=== PATIENT | female | born 1975 | race Caucasian/White ===

== ENCOUNTER 2023-02-09 19:02 | Emergency (ER) | payer OTHER, SELFPAY ==
--- OUTSIDE RECORDS SUMMARY | 2023-02-09 19:07 | XMS REPORT | Continuity of Care Document ---
:1975 Author Organization [facility] t Address [address] [place] [address] Care Team Providers Name Role Phone Gelacio HERNÁNDEZ MD, Desirae Gibson Primary Care Physician [phone] Juan M Hayward MD Attending Clinician Yolanda Sheridan NP Attending Clinician Surv, [facility] Covid Attending Clinician Unavailable Yesy MOULTON, Aniyah Castillo Attending Clinician [phone] Gino De La Vega MD Attending Clinician BritanyRia Sena Attending Clinician Grace TORRES, Bonnie Martínez Attending Clinician Unavailab Jaye Austin MA Attending Clinician Unavailable Coretta Minor MA Attending Clinician Unavailable Desirae Minor MD Attending Clinician Wade SALON ASSISTANT-CZeina Attending Clinician [phone] Soraida SALON ASSISTANT, Charbel Hager Attending Clinician Дмитрий SALON ASSISTANTRadah Attending Clinician Lab, Ad[facility] Fam Pob I Attending Clinician Unavailable Mart Odell Attending Clinician MART SONG Attending Clinician Unavailable Doctor Unassigned, [place] Attending Clinician Unavailable Pob, [facility] Lab Main Attending Clinician Unavailable Nathaly Causey MD Attending Clinician NATHALY CAUSEY Attending Clinician Unavailable JAMI TAVERAS Attending Clinician Unavailable Only, [facility] Test Attending Clinician Unavailable Maurizio Jacques MD Attending Clinician MAURIZIO JACQUES Attending Clinician Unavailable VEDA VALLADARES Attending Clinician Unavailable Veda Scanlon Attending Clinician Pob[facility], [facility] Attending Clinician Unavailable CHERRY SHERIDAN Admitting Clinician Unavailable ANIYAH HAYWARD Admitting Clinician Unavailable Payers Payer Name Policy Type Policy Number Effective Date Expiration Date S ource Problems Condition Condition Condition Status Onset Resolution Last Treating Co mments Source Name Details Category Date Date Treatment Clinician Date Cystocele, Cystocele, Disease Active 2021-11 Overview : Methodi midline midline 12-[address] 00:00: [facility] this [facility] 00 note l might be different from the original. Added automatic ally from request for surgery [id number] JENNIFER JENNIFER Disease Active 2021-11 Overview: Method i (stress (stress 12-[address] urinary urinary 00:00: g of this Hospi ta incontinen incontinen 00 note l ce, ce, might be female) female) different from the original. Added automatic ally from request for surgery [id number] Pharyngiti Pharyngiti Disease Active U nivers s, s, 04-20 ity of unspecif[place] 00 [place] Branch Cough Cough Disease Active Univers 04-20 ity of 00:00: [place] [address] Medical Branch Diarrhea, Diarrhea, Disease Active Uni vers unspecifie unspecifie 04-20 it y of d type d type 00:00: [place] [address] Medical Branch Close Close Disease Active Univers exposure exposure 04-20 ity of to to 00:00: [place] COVID-19 COVID-19 00 Medica l virus virus Branch Elevated Elevated Disease Active Unive rs BP without BP without - it y of diagnosis diagnosis 00:00[place] of 00 Medical hypertensi hypertensi Br anch on on Chest pain Chest pain Disease Active U nivers -27 ity of 00:00: [place] [address] Medical Branch Obesity Obesity Disease Active Univers (BMI (BMI 2-27 ity of 30-39.9) 30-39.9) 00:00: [place] 00 [facility] Gallstone Gallstone Disease Active Uni vers pancreatit pancreatit 3-10 it y of is is 00:00: [facility] Posture Posture Disease Active Univers abnormalit abnormalit 3-23 it y of y y 00:00: Medical Branch Decreased Decreased Disease Active Uni vers strength strength 3-23 ity of 00:00: Medical [place] Cervical Cervical Disease Active Unive rs radiculopa radiculopa 3- it y of thy thy 00:00: [place] [facility] Neck pain Neck pain Disease Active Uni vers on left on left 3-23 ity of side side 00:00: [place] [facility] Cervical Cervical Disease Active Unive rs strain, strain, 3- ity of acute, acute, 00:00: [place] initial initial 00 Medical encounter encounter Bran ch Allergies, Adverse Reactions, Alerts Allergy Allergy Status Severity Reaction(s) Onset Inactive Treating Comm ents Source Name Type Date Date Clinician NO KNOWN Drug Active Univers ALLERGIE Class ity of S [facility] Family History Family Member Diagnosis Comments Start Date Stop Date Source Natural father Hyperthyroidism [facility] Natural mother Breast cancer [facility] Natural mother Diabetes [facility] Natural mother Hypertension [facility] Social History Social Habit Start Date Stop Date Quantity Comments Source Exposure to Yes University SARS-CoV-2 [facility] (event) [place] Alcohol intake 2023-02-05 2023-02-05 Ex-drinker [facility] 00:00:00 00:00:00 (finding) Alcohol Comment 2022-10-30 2022-10-30 3-4 times a year Met [facility] 00:00:00 00:00:00 Tobacco use and 2022-06-27 2022-06-27 Smokeless tobacco [facility] exposure 00:00:00 00:00:00 non-user Sex Assigned At [address] [facility] 00:00:00 00:00:00 Smoking Status Start Date Stop Date Source Never smoked tobacco [facility] ospital Medications Ordered Filled Start Stop Current Ordering Indication Dosage Frequency Signature Comments Components Source Medication Medication Date Date Medication? Clinician (SIG) Name Name levothyroxi 2021-11 Yes 175ug QD Take 1 Met edwin gardiner 2-[address] (SYNTHROID) 10:11: (175 mcg Ho spita 175 mcg 47 total) by l tablet mouth daily. fluticasone 2021-11 Yes 100ug QD 2 sprays M ethodi propionate 2-21 ([address] (FLONASE) 10:11: total) by Hos kartik 50 47 Each Nare l mcg/actuati route on nasal daily. spray acetaminoph 2021-11 Yes 12084 1{tbl} Q6H Take 1 M ethodi en-codeine 2-[address] (TYLENOL 00:00: mouth Hospita WITH 00 every 6 l CODEINE #3) (six) 300-30 mg hours as per tablet needed for moderate pain .acute pain. cephalexin 2021-11- No 500mg Q.5D Take 1 Met hodi (KEFLEX) 01-[address] 500 MG 00:00: 05:59 (500 mg Hospita capsule 00 :00 total) by l mouth 2 (two) times a day for 5 days. metFORMIN 2021-11 Yes 500mg Take 1 Metho di XR 0-[address] (GLUCOPHAGE 00:00: (500 mg Hos kartik -XR) 500 mg 00 total) by l 24 hr mouth. tablet cyanocobala 2021-11 Yes INJECT 1ML Methodi min 1,000 0-[address] mcg/mL 00:00: 4 WEEKS Hospita injection 00 THEN l MONTHLY FOR MAINTENANC E. hydroCHLORO 2021-11- No 25mg Q24H Take 1 Met hodi thiazide 0-24 10-25 tablet (25 st (HYDRODIURI 00:00: 04:59 mg total) Hospita L) 25 MG 00 :00 by mouth l tablet daily as needed. buPROPion No Methodi XL 08-[address] (WELLBUTRIN 00:00: 00:00 Hospi ta XL) 150 MG 00 :00 l 24 hr tablet nitrofurant 2021- No [id number] 100mg Q.5D Take 1 Methodi oin, 08-[address] macrocrysta 00:00: 04:59 (100 mg Ho spita l-monohydra 00 :00 total) by l te, mouth 2 (Macrobid) (two) 100 MG times a capsule day for 5 days. cyclobenzap 2021- No [id number] 5mg Q.[id number] Take 1 Methodi rine 9-17 09-23 [id number] tablet (5 st (FLEXERIL) 00:00: 04:59 3D mg total) H ospita 5 mg tablet 00 :00 by mouth 3 l (three) times a day as needed for muscle spasms for up to 5 days. levothyroxi Yes TAKE 1 Meth myra ne 8-[address] (SYNTHROID) 00:00: MOUTH ON Ho spita 150 mcg 00 EVERY l tablet SATURDAY, SATURDAY & SATURDAY benzonatate 2021- No [id number] 200mg Q.[id number] Take 2 Methodi (Tessalon 8-03 09-[id number] Perl) 100 00:00: 04:59 3D (200 mg Ho spita MG capsule 00 :00 total) by l mouth 3 (three) times a day as needed for cough for up to 30 days. sertraline Yes 100mg QD Take 1 Meth myra (ZOLOFT) 5-[address] 100 MG 00:00: (100 mg Hospita tablet 00 total) by l mouth nightly. buPROPion 2022- No 150mg Take 1 Meth myra XL 5-17 05-[address] (WELLBUTRIN 00:00: 04:59 (150 mg Ho spita XL) 150 MG 00 :00 total) by l 24 hr mouth. tablet clarithromy 2019-0 Yes [id number] 500mg Take 1 Univers scotty 5-27 tablet by ity of (BIAXIN) 00:00: mouth [place] 500 mg 00 every 12 Medical tablet (twelve) Branch hours. nystatin/ma 2020-0 Yes [id number] 5mL Take 5 mL Univers alox/diphen 5-27 by mouth 4 it y of hydrAMINE/l 00:00: (four[place] idocaine 2 00 times Medical % viscous daily as Branch 1:1:1:1 needed Susp (Sore suspension throat). Gargle and spit, do not swallow acetaminoph 2020-0 Yes [id number] 650mg Take 1 Univers en 650 mg 5-27 tablet by ity o f CR tablet 00:00: mouth [place] 00 every 8 Medical (eight) Branch hours as needed for Pain or Fever. Bismuth 2020-0 Yes [id number] 262mg Take 1 Uni vers Subsalicyla 5-27 tablet by ity of te 00:00: mouth 4 [place] (PEPTO-BISM 00 (four) Medica l OL) 262 mg times Branch tablet daily as needed (diarrhea) . bromphenira 2020-0 Yes [id number] 10mL Take 10 mL Univers mine-pseudo 5-27 by mouth 4 it y of ephedrine-D 00:00: (four[place] M (BROMFED 00 times Medical DM) 2-30-10 daily as Bran ch mg/5 mL needed for syrup Cough. clarithromy 2020-0 Yes [id number] 500mg Take 1 Univers scotty 5-27 tablet by ity of (BIAXIN) 00:00: mouth [place] 500 mg 00 every 12 Medical tablet (twelve) Branch hours. nystatin/ma 2020-0 Yes [id number] 5mL Take 5 mL Univers alox/diphen 5-27 by mouth 4 it y of hydrAMINE/l 00:00: (four[place] idocaine 2 00 times Medical % viscous daily as Branch 1:1:1:1 needed Susp (Sore suspension throat). Gargle and spit, do not swallow acetaminoph 2020-0 Yes [id number] 650mg Take 1 Univers en 650 mg 5-27 tablet by ity o f CR tablet 00:00: mouth [place] 00 every 8 Medical (eight) Branch hours as needed for Pain or Fever. Bismuth 2020-0 Yes [id number] 262mg Take 1 Uni vers Subsalicyla 5-27 tablet by ity of te 00:00: mouth 4 [place] (PEPTO-BISM 00 (four) Medica l OL) 262 mg times Branch tablet daily as needed (diarrhea) . bromphenira 2020-0 Yes [id number] 10mL Take 10 mL Univers mine-pseudo 5-27 by mouth 4 it y of ephedrine-D 00:00: (four[place] M (BROMFED 00 times Medical DM) 2-30-10 daily as Bran ch mg/5 mL needed for syrup Cough. clarithromy 2020-0 Yes [id number] 500mg Take 1 Univers scotty 5-27 tablet by ity of (BIAXIN) 00:00: mouth [place] 500 mg 00 every 12 Medical tablet (twelve) Branch hours. nystatin/ma 2020-0 Yes [id number] 5mL Take 5 mL Univers alox/diphen 5-27 by mouth 4 it y of hydrAMINE/l 00:00: (four[place] idocaine 2 00 times Medical % viscous daily as Branch 1:1:1:1 needed Susp (Sore suspension throat). Gargle and spit, do not swallow acetaminoph 2020-0 Yes [id number] 650mg Take 1 Univers en 650 mg 5-27 tablet by ity o f CR tablet 00:00: mouth [place] 00 every 8 Medical (eight) Branch hours as needed for Pain or Fever. Bismuth 2020-0 Yes [id number] 262mg Take 1 Uni vers Subsalicyla 5-27 tablet by ity of te 00:00: mouth 4 [place] (PEPTO-BISM 00 (four) Medica l OL) 262 mg times Branch tablet daily as needed (diarrhea) . bromphenira 2020-0 Yes [id number] 10mL Take 10 mL Univers mine-pseudo 5-27 by mouth 4 it y of ephedrine-D 00:00: (four[place] M (BROMFED 00 times Medical DM) 2-30-10 daily as Bran ch mg/5 mL needed for syrup Cough. clarithromy 2020-0 Yes [id number] 500mg Take 1 Univers scotty 5-27 tablet by ity of (BIAXIN) 00:00: mouth [place] 500 mg 00 every 12 Medical tablet (twelve) Branch hours. nystatin/ma 2020-0 Yes [id number] 5mL Take 5 mL Univers alox/diphen 5-27 by mouth 4 it y of hydrAMINE/l 00:00: (four[place] idocaine 2 00 times Medical % viscous daily as Branch 1:1:1:1 needed Susp (Sore suspension throat). Gargle and spit, do not swallow acetaminoph 2020-0 Yes [id number] 650mg Take 1 Univers en 650 mg 5-27 tablet by ity o f CR tablet 00:00: mouth [place] 00 every 8 Medical (eight) Branch hours as needed for Pain or Fever. Bismuth 2020-0 Yes [id number] 262mg Take 1 Uni vers Subsalicyla 5-27 tablet by ity of te 00:00: mouth 4 [place] (PEPTO-BISM 00 (four) Medica l OL) 262 mg times Branch tablet daily as needed (diarrhea) . bromphenira 2020-0 Yes [id number] 10mL Take 10 mL Univers mine-pseudo 5-27 by mouth 4 it y of ephedrine-D 00:00: (four[place] M (BROMFED 00 times Medical DM) 2-30-10 daily as Bran ch mg/5 mL needed for syrup Cough. clarithromy 2020-0 Yes [id number] 500mg Take 1 Univers scotty 5-27 tablet by ity of (BIAXIN) 00:00: mouth [place] 500 mg 00 every 12 Medical tablet (twelve) Branch hours. nystatin/ma 2020-0 Yes [id number] 5mL Take 5 mL Univers alox/diphen 5-27 by mouth 4 it y of hydrAMINE/l 00:00: (four[place] idocaine 2 00 times Medical % viscous daily as Branch 1:1:1:1 needed Susp (Sore suspension throat). Gargle and spit, do not swallow acetaminoph 2020-0 Yes [id number] 650mg Take 1 Univers en 650 mg 5-27 tablet by ity o f CR tablet 00:00: mouth [place] 00 every 8 Medical (eight) Branch hours as needed for Pain or Fever. Bismuth 2020-0 Yes [id number] 262mg Take 1 Uni vers Subsalicyla 5-27 tablet by ity of te 00:00: mouth 4 [place] (PEPTO-BISM 00 (four) Medica l OL) 262 mg times Branch tablet daily as needed (diarrhea) . bromphenira 2020-0 Yes [id number] 10mL Take 10 mL Univers mine-pseudo 5-27 by mouth 4 it y of ephedrine-D 00:00: (four[place] M (BROMFED 00 times Medical DM) 2-30-10 daily as Bran ch mg/5 mL needed for syrup Cough. clarithromy 2020-0 Yes [id number] 500mg Take 1 Univers scotty 5-27 tablet by ity of (BIAXIN) 00:00: mouth [place] 500 mg 00 every 12 Medical tablet (twelve) Branch hours. nystatin/ma 2020-0 Yes [id number] 5mL Take 5 mL Univers alox/diphen 5-27 by mouth 4 it y of hydrAMINE/l 00:00: (four[place] idocaine 2 00 times Medical % viscous daily as Branch 1:1:1:1 needed Susp (Sore suspension throat). Gargle and spit, do not swallow acetaminoph 2020-0 Yes [id number] 650mg Take 1 Univers en 650 mg 5-27 tablet by ity o f CR tablet 00:00: mouth [place] 00 every 8 Medical (eight) Branch hours as needed for Pain or Fever. Bismuth 2020-0 Yes [id number] 262mg Take 1 Uni vers Subsalicyla 5-27 tablet by ity of te 00:00: mouth 4 [place] (PEPTO-BISM 00 (four) Medica l OL) 262 mg times Branch tablet daily as needed (diarrhea) . bromphenira 2020-0 Yes [id number] 10mL Take 10 mL Univers mine-pseudo 5-27 by mouth 4 it y of ephedrine-D 00:00: (four) [place] M (BROMFED 00 times Medical DM) 2-30-10 daily as Bran ch mg/5 mL needed for syrup Cough. clarithromy 2020-0 Yes [id number] 500mg Take 1 Univers scotty 5-27 tablet by ity of (BIAXIN) 00:00: mouth [place] 500 mg 00 every 12 Medical tablet (twelve) Branch hours. nystatin/ma 2020-0 Yes [id number] 5mL Take 5 mL Univers alox/diphen 5-27 by mouth 4 it y of hydrAMINE/l 00:00: (four[place] idocaine 2 00 times Medical % viscous daily as Branch 1:1:1:1 needed Susp (Sore suspension throat). Gargle and spit, do not swallow acetaminoph 2020-0 Yes [id number] 650mg Take 1 Univers en 650 mg 5-27 tablet by ity o f CR tablet 00:00: mouth [place] 00 every 8 Medical (eight) Branch hours as needed for Pain or Fever. Bismuth 2020-0 Yes [id number] 262mg Take 1 Uni vers Subsalicyla 5-27 tablet by ity of te 00:00: mouth 4 [place] (PEPTO-BISM 00 (four) Medica l OL) 262 mg times Branch tablet daily as needed (diarrhea) . bromphenira 2020-0 Yes [id number] 10mL Take 10 mL Univers mine-pseudo 5-27 by mouth 4 it y of ephedrine-D 00:00: (four) Balwindernoé Delgado (BROMFED 00 times Medical DM) 2-30-10 daily as Bran ch mg/5 mL needed for syrup Cough. SERTraline 2020-0 Yes Univers 50 mg 5-26 ity of tablet 00:00: [place] [facility] SERTraline 2020-0 Yes Univers 50 mg 5-26 ity of tablet 00:00: [place] [facility] SERTraline 2020-0 Yes Univers 50 mg 5-26 ity of tablet 00:00: [place] [facility] SERTraline 2020-0 Yes Univers 50 mg 5-26 ity of tablet 00:00: [place] [facility] SERTraline 2020-0 Yes Univers 50 mg 5-26 ity of tablet 00:00: [place] [facility] SERTraline 2020-0 Yes Univers 50 mg 5-26 ity of tablet 00:00: [place] [facility] SERTraline 2020-0 Yes Univers 50 mg 5-26 ity of tablet 00:00: [place] [facility] levothyroxi 2020-0 Yes Univer s ne 100 mcg 5-22 ity of tablet 00:00: [place] [facility] levothyroxi 2020-0 Yes Univer s ne 100 mcg 5-22 ity of tablet 00:00: [place] [facility] levothyroxi 2020-0 Yes Univer s ne 100 mcg 5-22 ity of tablet 00:00: [place] [facility] levothyroxi 2020-0 Yes Univer s ne 100 mcg 5-22 ity of tablet 00:00: [place] [facility] levothyroxi 2020-0 Yes Univer s ne 100 mcg 5-22 ity of tablet 00:00: [address] levothyroxi 2020-0 Yes Univer s ne 100 mcg 5-22 ity of tablet 00:00: [place] [facility] levothyroxi 2020-0 Yes Univer s ne 100 mcg 5-22 ity of tablet 00:00: [address] topiramate 2020-0 Yes TK 1 T PO Un socrates 25 mg 4-16 BID ity of tablet 00:00: [place] [facility] topiramate 2020-0 Yes TK 1 T PO Un socrates 25 mg 4-16 BID ity of tablet 00:00: [place] [facility] topiramate 2020-0 Yes TK 1 T PO Un socrates 25 mg 4-16 BID ity of tablet 00:00: [place] [facility] topiramate 2020-0 Yes TK 1 T PO Un socrates 25 mg 4-16 BID ity of tablet 00:00: [place] [address] Medical Branch topiramate 2020-0 Yes TK 1 T PO Un socrates 25 mg 4-16 BID ity of tablet 00:00: [place] [address] Medical Branch topiramate 2020-0 Yes TK 1 T PO Un socrates 25 mg 4-16 BID ity of tablet 00:00: [place] [address] Medical Branch topiramate 2020-0 Yes TK 1 T PO Un socrates 25 mg 4-16 BID ity of tablet 00:00: [place] [address] Medical Branch atorvastati 2020-0 Yes Univer s n 10 mg 3-10 ity of tablet 00:00: [place] [address] Medical Branch atorvastati 2020-0 Yes Univer s n 10 mg 3-10 ity of tablet 00:00: [place] [address] Medical Branch atorvastati 2020-0 Yes Univer s n 10 mg 3-10 ity of tablet 00:00: [place] [address] Medical Branch atorvastati 2020-0 Yes Univer s n 10 mg 3-10 ity of tablet 00:00: [place] [address] Medical Branch atorvastati 2020-0 Yes Univer s n 10 mg 3-10 ity of tablet 00:00: [place] [address] Medical Branch atorvastati 2020-0 Yes Univer s n 10 mg 3-10 ity of tablet 00:00: [place] [address] Medical Branch atorvastati 2020-0 Yes Univer s n 10 mg 3-10 ity of tablet 00:00: [place] [address] Medical Branch atorvastati 2020-0 Yes TAKE 1 Meth myra n (LIPITOR) 3-10 TABLET(10 st 10 mg 00:00: MG) BY Hospita tablet 00 MOUTH 1 l TIME EACH DAY levothyroxi 2019-0 2020- No 88ug Take 88 Un socrates ne 88 mcg 2-17 02-17 mcg by ity of tablet 00:00: 05:59 mouth. [place] 00 :00 [facility] levothyroxi 2019-0 2020- No 88ug Take 88 Un socrates ne 88 mcg 2-17 02-17 mcg by ity of tablet 00:00: 05:59 mouth. [place] 00 :00 Medical Branch levothyroxi 0 2020- No 88ug Take 88 Un socrates ne 88 mcg 2-17 02-17 mcg by ity of tablet 00:00: 05:59 mouth. [place] 00 :00 Medical Branch levothyroxi 0 2020- No 88ug Take 88 Un socrates ne 88 mcg 2-17 02-17 mcg by ity of tablet 00:00: 05:59 mouth. [place] 00 :00 Medical Branch levothyroxi 0 2020- No 88ug Take 88 Un socrates ne 88 mcg 2-17 02-17 mcg by ity of tablet 00:00: 05:59 mouth. [place] 00 :00 Medical Branch methocarbam 2018-11 Yes 500mg Take 500 U nivers ol 500 mg 1-22 mg by ity of tablet 00:00: mouth. [place] [facility] methocarbam 2018-11 Yes 500mg Take 500 U nivers ol 500 mg 1-22 mg by ity of tablet 00:00: mouth. [place] [facility] methocarbam 2018-11 Yes 500mg Take 500 U nivers ol 500 mg 1-22 mg by ity of tablet 00:00: mouth. [place] [facility] methocarbam 2018-11 Yes 500mg Take 500 U nivers ol 500 mg 1-22 mg by ity of tablet 00:00: mouth. [place] [facility] methocarbam 2018-11 Yes 500mg Take 500 U nivers ol 500 mg 1-22 mg by ity of tablet 00:00: mouth. [place] [facility] methocarbam 2018-11 Yes 500mg Take 500 U nivers ol 500 mg 1-22 mg by ity of tablet 00:00: mouth. [place] [facility] methocarbam 2018-11 Yes 500mg Take 500 U nivers ol 500 mg 1-22 mg by ity of tablet 00:00: mouth. [place] 00 Medical Branch fluticasone Yes SHAKE LQ Un socrates propionate 7-20 AND U 1 ity of 50 00:00: SPR IEN QD [place] mcg/actuati 00 Medical on nasal Branch spray fluticasone Yes SHAKE LQ Un socrates propionate 7-20 AND U 1 ity of 50 00:00: SPR IEN QD [place] mcg/actuati 00 Medical on nasal Branch spray fluticasone 2019 Yes SHAKE LQ Un socrates propionate 7-20 AND U 1 ity of 50 00:00: SPR IEN QD [place] mcg/actuati 00 Medical on nasal Branch spray fluticasone 0 Yes SHAKE LQ Un socrates propionate 7-20 AND U 1 ity of 50 00:00: SPR IEN QD [place] mcg/actuati 00 Medical on nasal Branch spray fluticasone Yes SHAKE LQ Un socrates propionate 7-20 AND U 1 ity of 50 00:00: SPR IEN QD [place] mcg/actuati 00 Medical on nasal Branch spray fluticasone Yes SHAKE LQ Un socrates propionate 7-20 AND U 1 ity of 50 00:00: SPR IEN QD [place] mcg/actuati 00 Medical on nasal Branch spray fluticasone Yes SHAKE LQ Un socrates propionate 7-20 AND U 1 ity of 50 00:00: SPR IEN QD [place] mcg/actuati Medical on nasal Branch spray No known No Univers medications ity of [facility] No known No Univers medications [facility] Immunizations Ordered Filled Immunization Date Status Comments Sour e Immunization Name Name FLUZONE DINA PF 2022-09-20 Completed Yarsanism 00:00:00 [facility] COVID-19 2022-04-26 Completed Methodis t MRNA VACCINATION 00:00:00 [facility] COVID-19 2021-10-16 Completed Methodis t MRNA VACCINATION 00:00:00 [facility] SARS-COV-2 COVID-19 2020-11-08 Completed Unive rsity of PFIZER VACCINE 00:00:00 [facility] SARS-COV-2 COVID-19 2020-11-08 Completed Unive rsity of PFIZER VACCINE 00:00:00 [facility] SARS-COV-2 COVID-19 2020-11-08 Completed Unive rsity of PFIZER VACCINE 00:00:00 [facility] SARS-COV-2 COVID-19 2020-11-08 Completed Unive rsity of PFIZER VACCINE 00:00:00 [facility] SARS-COV-2 COVID-19 2020-11-08 Completed Unive rsity of PFIZER VACCINE 00:00:00 [facility] PFIZER COVID-19 2020-11-08 Completed Yarsanism MRNA VACCINATION 00:00:00 Hospital Vital Signs Vital Name Observation Time Observation Value Comments Source Systolic blood 2020-02-17 19:07:00 144 mm[Hg] Univer sity of pressure [facility] Diastolic blood 2020-02-17 19:07:00 94 mm[Hg] Unive rsity of pressure [facility] Heart rate 2020-02-17 19:07:00 88 /min Universi [facility] Oxygen saturation in 2020-02-17 19:07:00 99 /min University Arterial blood by [facility] Pulse oximetry Branch Body temperature 2020-02-17 19:06:00 37.06 [facility] 2020-02-17 19:06:00 18 /min [facility] Systolic blood 2023-02-05 21:30:00 121 mm[Hg] [facility] pressure Diastolic blood 2023-02-05 21:30:00 73 mm[Hg] [facility] pressure Heart rate 2023-02-05 21:30:00 82 /min [facility] Respiratory rate 2023-02-05 21:30:00 23 /min [facility] Oxygen saturation in 2023-02-05 21:30:00 90 /min [facility] Arterial blood by Pulse oximetry Body temperature 2023-02-05 20:41:00 36.5 Tiffanie [facility] Body height 2023-02-05 20:39:00 175.3 cm [facility] Body weight 2023-02-05 20:39:00 120.203 kg [facility] BMI 2023-02-05 20:39:00 39.13 kg/m2 [facility] Procedures Procedure Date / Time Performing Clinician Source Performed XR CHEST 1 VW PORTABLE 2023-02-05 21:22:35 Juan M Hayward [facility] ECG ED PRELIMINARY 2023-02-05 20:48:45 Sherry Uriostegui [facility] INTERPRETATION CBC WITH PLATELET AND 2023-02-05 20:45:00 Juan M Hayward [facility] DIFFERENTIAL COMPREHENSIVE METABOLIC 2023-02-05 20:45:00 Juan M Hayward Pamela [facility] PANEL TROPONIN, I-STAT 2023-02-05 20:45:00 Yesy, [facility] B NATRIURETIC PEP, I-STAT 2023-02-05 20:45:00 [facility]FR 2023-02-05 20:45:00 Yesy [facility] ECG 12-LEAD 2023-02-05 20:40:12 Yesy [facility] COVID-19 QUALITATIVE 2022-12-13 16:39:00 Yolanda Sheridan [facility] RT-PCR POC URINALYSIS DIPSTICK 2022-11-14 16:26:23 [facility] [id number] 2022-11-14 16:26:23 Aniyah Hayward [facility] POC GLUCOSE 2022-11-01 18:18:00 Aniyah Hayward spital Menghea LA AN ELECTIVE 2022-11-01 16:29:00 Emma Lord ospital ENDOTRACHEAL AIRWAY Zeina REPAIR, CYSTOCELE 2022-11-01 16:07:00 [facility] P[facility] GLUCOSE 2022-11-01 15:45:00 Aniyah Hayward spital Menea URINE CULTURE 2022-10-30 22:29:00 Aniyah Hayward spital [facility] URINALYSIS, AUTOMATED 2022-10-30 22:29:00 [facility]CROSCOPY [facility] POC URINALYSIS DIPSTICK 2022-10-30 22:28:28 [facility]ROMB[facility]LASTIN 2022-10-30 21:25:[address] [facility] TIME (PTT) [facility] PROTHROMBIN TIME WITH INR 2022-10-30 21:25:00 Aniyah Hayward [facility] COMPREHENSIVE METABOLIC 2022-10-30 21:25:00 [facility] CBC WITH PLATELET AND 2022-10-30 21:25:00 [facility] DIFFERENTIAL [facility] HEMOGLOBIN A1C 2022-10-30 21:25:00 Ria Garg ospital ESTIMATED GFR 2022-10-30 21:25:00 Aniyah Hayward spital [facility] LABORIE URODYNAMICS 2022-10-01 17:50:30 Aniyah Hayward [facility] URINE CULTURE 2022-09-26 21:33:00 Aniyah Hayward spital Menea MAMMO SELF REQUESTING 2022-09-21 19:36:00 Desirae Minor [facility] SCREENING BILATERAL W PEYMAN [id number] 2022-08-14 20:11:39 Aniyah Hayward [facility] POC URINALYSIS DIPSTICK 2022-08-14 19:47:16 Aniyah Hayward [facility] US THYROID 2022-05-10 16:54:43 Desirae Minor Ho spital CONSENT/REFUSAL FOR 2021-06-29 21:53:55 Doctor Unaluz, [facility] DIAGNOSIS AND TREATMENT [facility] ASSIGNMENT OF BENEFITS 2021-06-29 21:53:40 Doctor [facility]assjohnson[facility] T3 UPTAKE 2020-12-01 22:33:00 Zeina Olvera [facility] THYROXINE, TOTAL 2020-12-01 22:33:00 Zeina Olvera [facility] THYROID STIMULATING 2020-12-01 22:33:00 Zeina Olvera [facility] HORMONE [facility] VITAMIN D, 25-OH 2020-12-01 22:33:00 Zeina Olvera [facility] PHYSICIAN ORDERS 2020-12-01 06:01:00 Doctor Homero, [facility] Plan of Care Planned Activity Planned Date Details Comments Source Future Scheduled 2023-02-06 Hepatitis C screening [facility] Test 17:02:40 (procedure) [code = 355662320] Future Scheduled 2023-02-[address] [facility] Test 17:02:40 malignant neoplasm of cervix (procedure) [code = 367208320] Future Scheduled 2023-02-06 COLONOSCOPY SCREENING [facility] Test 17:02:40 [code = COLONOSCOPY SCREENING] Future Scheduled 2023-02-06 COVID-19 [facility]ACCINE ([facility] 17:02:40 Booster) [code = COVID-19 VACCINE (4 - Booster)] Future Scheduled 2023-02-[address] [facility] Test 17:02:40 SCREENING [code = BREAST CANCER SCREENING] Encounters Start End Encounter Admission Attending Care Care Encounter Source Date/Time Date/Time Type Type Clinicians Facility Department ID 2023-02-05 2023-02-05 Emergency Yesy, 1.2.840.1 [id number] Methodi 15:36:00 16:57:00 Juan M T. 84295.1.[address] 3.430.2.7 Hospit a .3.113742 l .8 2023-02-05 2023-02-05 [id number] [place] 00:00:00 00:00:00 JUAN M [address] 2023-02-05 2023-02-05 Travel 1.2.840.1 1.2.403.854 3483 [id number] Methodi 00:00:00 00:00:[address] 3.430.2.7 0.2.7.3.698 Ho spita .3.321772 084.8 l .8 2022-12-13 2022-12-13 WLYolanda Drake 1.2.840.1 [id number] Methodi 10:40:00 10:40:15 COVID-19 Surv, [facility] Wlns Covid 57670.1.[address] 3.430.2.7 Hospit a .3.940287 l .8 2022-12-13 2022-12-13 [facility] [id number] [place] 00:00:00 00:00:00 YOLANDA [address] 2022-11-14 2022-11-14 Office Yesy 1.2.840.1 [id number] 2100 [id number] Methodi 10:00:00 11:14:23 Visit Aniyah 86623.1.[address] [facility] 3.430.2.7 Hosp rishabh .3.683456 l .8 2022-11-14 2022-11-14 [facility] [id number] [id number] [place] 00:00:00 00:00:00 ANIYAH [address] 2022-11-14 2022-11-14 Travel 1.2.840.1 1.2.355.669 9080 [id number] Methodi 00:00:00 00:00:[address] 3.430.2.7 0.2.7.3.698 Ho spita .3.557405 084.8 l .8 2022-11-01 2022-11-01 [facility] Yesy, 1.2.840.1 [id number] [id number] Methodi 08:19:00 15:21:00 Encounter Aniyah 63359.1.[address] [facility] 3.430.2.7 Hosp rishabh .3.428490 l .8 2022-11-01 2022-11-01 Anesthesia Gino De La Vega 1.2.840.1 [id number] [id number] Methodi 10:07:00 12:20:00 Event Ria Garg 84211.1.[address] 3.430.2.7 Hospit a .3.658860 l .8 2022-11-01 2022-11-01 Surgery Yesy, 1.2.840.1 [id number] 2100 [id number] Methodi 10:00:00 12:15:[address] [facility] 3.430.2.7 Hosp rishabh .3.185270 l .8 2022-11-01 2022-11-01 [facility]patient [facility] [id number] [id number] [place] 00:00:00 00:00:00 ANIYAH [address] 2022-10-30 2022-10-30 Clinical 1.2.840.1 [id number] Methodi 14:30:00 16:06:[address] 3.430.2.7 Hospit a .3.749508 l .8 2022-10-30 2022-10-30 Pre-Admiss Yesy, 1.2.840.1 [id number] 2 [id number] Methodi 15:00:00 16:00:00 ion Aniyah 46162.1.[address] Testing [place] 3.430.2.7 Hosp rishabh .3.008647 l .8 2022-10-30 2022-10-30 Outpatient YESY [facility] [id number] [id number] [place] 00:00:00 00:00:00 ANIYAH [address] 2022-10-30 2022-10-30 Outpatient [facility] [id number] [place] 00:00:00 00:00:[address] 2022-10-30 2022-10-30 Travel 1.2.840.1 1.2.762.221 5408 [id number] Methodi 00:00:00 00:00:[address] 3.430.2.7 0.2.7.3.698 Ho spita .3.072006 084.8 l .8 2022-10-29 2022-10-29 Documentat Edwards, 1.2.840.1 [id number] Methodi 00:00:00 00:00:00 ion Bonnie 65240.1.[address] Tanya 3.430.2.7 Hosp rishabh .3.523751 l .8 2022-10-22 2022-10-22 Prep for Ashutosh, 1.2.840.1 [id number] 652 [id number] Methodi 00:00:00 00:00:00 Surgery Jaye 52536.1.[address] 3.430.2.7 Hospit a .3.878345 l .8 2022-10-15 2022-10-15 Office Yesy, 1.2.840.1 [id number] 2100 [id number] Methodi 11:30:00 12:02:14 Visit Aniyah 61166.1.[address] [facility] 3.430.2.7 Hosp rishabh .3.886509 l .8 2022-10-15 2022-10-15 Outpatient YESY [facility] 01310 [id number] [place] 00:00:00 00:00:[address] AN[address]YAH [address] 2022-10-15 2022-10-15 Travel 1.2.840.1 1.2.170.316 8774 [id number] Methodi 00:00:00 00:00:[address] 3.430.2.7 0.2.7.3.698 Ho spita .3.575659 084.8 l .8 2022-10-02 2022-10-02 [facility], 1.2.840.1 [id number] [id number] Methodi 00:00:00 00:00:[address] 3.430.2.7 Hospit a .3.519731 l .8 2022-10-01 2022-10-01 Procedure Yesy, 1.2.840.1 [id number] Methodi 11:00:00 13:03:34 visit Aniyah 48954.1.[address] [facility] 3.430.2.7 Hosp rishabh .3.640805 l .8 2022-10-01 2022-10-01 Outpatient [facility] 48808 [id number] [place] 00:00:00 00:00:00 ANIYAH [address] 2022-10-01 2022-10-01 Travel 1.2.840.1 1.2.798.637 9890 [id number] Methodi 00:00:00 00:00:[address] 3.430.2.7 0.2.7.3.698 Ho spita .3.226294 084.8 l .8 2022-09-21 2022-09-21 [facility] Minor, 1.2.840.1 [id number] Methodi 13:47:38 23:59:00 Encounter Desirae A 70006.1.[address] 3.430.2.7 Hospit a .3.490883 l .8 2022-09-21 2022-09-21 [facility] [id number] [place] 00:00:00 00:00:00 DESIRAE [address] 2022-08-14 2022-08-14 Office Yesy, 1.2.840.1 [id number] 2100 [id number] Methodi 14:30:00 15:41:56 Visit Aniyah 65073.1.[address] Nellyeang 3.430.2.7 Hosp rishabh .3.016762 l .8 2022-08-14 2022-08-14 Travel 1.2.840.1 1.2.545.115 3624 066755 Methodi 00:00:00 00:00:[address] 3.430.2.7 0.2.7.3.698 Ho spita .3.853755 084.8 l .8 2022-08-14 2022-08-14 [facility] [id number] [id number] [place] 00:00:00 00:00:00 ANIYAH [address] 2022-08-13 2022-08-13 Transcribe Wade, 1.2.840.1 [id number] 571 [id number] Methodi 00:00:00 00:00:00 Orders Zeina 07638.1.[address] Annalisa 3.430.2.7 Hospit a .3.006263 l .8 2022-08-13 2022-08-13 Transcribe Gelacio, 1.2.840.1 [id number] Methodi 00:00:00 00:00:00 Orders Desirae A 96575.1.[address] 3.430.2.7 Hospit a .3.241443 l .8 2022-08-11 2022-08-12 Virtual Soraida, Charbel 1.2.840.1 [id number] Methodi 21:00:00 08:07:26 Urgent Madan 44572.1.[address] Care 3.430.2.7 Hospit a .3.235904 l .8 2022-08-11 2022-08-12 Outpatient [facility] [id number] [place] 00:00:00 00:00:[address] 2022-06-27 2022-06-27 Radha Song 1.2.840.1 [id number] Methodi 16:15:00 16:40:[address] Care 3.430.2.7 Hospit a .3.953801 l .8 2022-06-27 2022-06-27 Outpatient [facility] [id number] [place] 00:00:00 00:00:[address] 2022-06-12 2022-06-12 Travel 1.2.840.1 1.2.241.739 1121 574199 Methodi 00:00:00 00:00:[address] 3.430.2.7 0.2.7.3.698 Ho spita .3.288544 084.8 l .8 2022-05-10 2022-05-10 Hospital Minor, 1.2.840.1 [id number] 93826 Methodi 11:00:00 23:59:00 Encounter Desirae A [address]809.1.[address] 3.430.2.7 Hospit a .3.755324 l .8 2022-05-10 2022-05-10 Travel 1.2.840.1 1.2.572.094 7685 846515 Methodi 00:00:00 00:00:[address] 3.430.2.7 0.2.7.3.698 Ho spita .3.613418 084.8 l .8 2022-05-10 2022-05-[address] [facility] [id number] 705 [place] 00:00:00 00:00:[address] 2022-05-01 2022-05-01 Transcribe Minor, 1.2.840.1 [id number] 572 [id number] Methodi 00:00:00 00:00:00 Orders Desirae A 61274.1.[address] 3.430.2.7 Hospit a .3.826319 l .8 2022-04-26 2022-04-26 Lab Gelacio, 1.2.840.1 [id number] 3362 Methodi 12:25:00 12:30:00 Desirae A [address]0597.1.[address] 3.430.2.7 Hospit a .3.798990 l .8 2022-04-26 2022-04-26 Travel 1.2.840.1 1.2.622.545 1736 779901 Methodi 00:00:00 00:00:[address] 3.430.2.7 0.2.7.3.698 Ho spita .3.217037 084.8 l .8 2022-04-26 2022-04-26 Outpatient MINOR, [facility] [id number] [place] 00:00:00 00:00:00 DESIRAE [address] 2021-06-29 2021-06-29 Material Spreader Lab, [facility] 1.2. 840.114 [id number] Univers 16:54:34 17:14:34 Visit [facility] [employer] 350.1.13.10 ity of [place] 4.2.7.2.686 Balwinder as Professio [phone] [address] Office Building One 2021-06-29 2021-06-29 Outpatient R JASON [facility] [id number] Univers 16:40:00 16:40:00 MART ity of [facility] 2021-06-29 2021-06-29 Orders Doctor SOTO 1..840.114 [id number] Univers 00:00:00 00:00:00 Only Unassigned, LAVERN 350.1.13.10 ity of [place] [facility] 4.2.7.2.686 Balwinder as [phone] [address] 2020-12-04 2020-12-04 Laboratory [facility], [facility] 1.2. 840.114 [id number] Univers 15:23:20 15:43:20 Only [facility] 350.1.13.10 ity of [place] 4.2.7.2.686 Balwinder as Professio [phone] Mi dical nal [address] One 2020-12-04 2020-12-04 Outpatient R [facility] [id number] Univers 15:20:00 15:20:00 ity of [facility] 2020-12-01 2020-12-01 Material Spreader Maria Esther Soto Lab Main [facility] 1.2.8 40.114 [id number] Univers 16:16:04 16:31:04 Visit Nathaly Causey 350.1.13.10 ity of [place].2.[place] Profess[place] [phone] Mi dical nal [address] 2020-12-01 2020-12-01 Outpatient R MARIUM [facility] [id number] Univers 16:15:00 16:15:00 NATHALY ity [facility] 2020-12-01 2020-12-01 Orders Doctor BRITTANY 1.2.840.114 [id number] Univers 00:00:00 00:00:00 Only Unassigned, LAVERN 350.1.13.10 ity of [facility] 4.2.7.2.686 Balwinder as [phone] [facility] [address] [place] 2020-11-29 2020-11-29 [facility] 72876 [id number] Univers 09:40:00 09:40:00 JAMI [facility] 2020-11-08 2020-11-08 Outpatient R DARCY [facility] [id number] Univers 16:10:00 16:10:00 JAMI [facility] 2020-10-19 2020-10-19 Laboratory Only, [facility] Test UNIVERSIT 1.2.84 0.114 [id number] Univers 10:50:38 11:05:38 Only Maurizio Jacques 350.1.13.10 ity of [facility] 4.2.7.2.[place] [phone] [facility] [address] [place] 2020-10-19 2020-10-19 Outpatient R [facility] [id number] Univers 11:00:00 11:00:00 [facility] 2020-10-19 2020-10-19 Outpatient R JOHN [facility] [id number] Univers 09:00:00 09:00:00 MAURIZIO federica [facility] 2020-04-20 2020-04-20 Outpatient R [facility] [id number] Univers 11:40:00 11:40:00 VEDA stallworth [facility] 2020-02-18 2020-02-18 Telephone BRITTANY Valladares 1.2.255.421 0511 [id number] Univers 00:00:00 00:00:00 Veda PUCKETT 350.1.13.10 i ty of [facility] 4.2.7.2.686 Balwinder as [phone] [address] 2020-02-17 2020-02-17 Urgent Pob1, Acute Care Clinic [facility] 1. 2.840.114 [id number] Univers 13:16:49 14:42:51 Care Veda Valladares [facility] 350.1.13.10 ity [facility] 4.2.7.2.686 [place] as Professio [phone] Mi dical [facility] [address] [place] Office [address] One 2020-02-17 2020-02-17 Outpatient R BLAINE [facility] [id number] [facility] 13:20:00 13:20:00 VEDA stallworth [facility] Results Test Description Test Time Test Comments Results Result Comments Source ECG 12 lead 2023-02-08 07:26:05 Test Item Value Reference Range Interpretation Comme nts Ventricular rate (test code = 253) 78 Atrial rate (test code = 255) 78 LA interval (test code = 266) 152 QRSD interval (test code = 260) 92 QT interval (test code = 264) 380 QTC interval (test code = 265) 433 P axis 1 (test code = 267) 31 QRS axis 1 (test code = 268) -12 T wave axis (test code = 270) 34 EKG impression (test code = 273) Normal sinus rhythm-Late Transitio n -Left axis deviation-In automated comparison with ECG of 06-JUL-2016 23:01,-No significant change was found- Aminah Avery-CoV-2 (COVID-19) RNA [Presence] in Respiratory specimen by BETHANY with probe [id number] 00:34:52 Test Item Value Reference Range Interpretation Comments SARS-CoV-2 (COVID-19) RNA Not detected [Presence] in Respiratory specimen by BETHANY with probe detection (test code = 37549-4) Whether patient is employed in a Unknown healthcare setting (test code = 15810-8) Whether the patient has symptoms Unknown related to condition of interest (test code = 97691-6) Whether the patient was Unknown hospitalized for condition of interest (test code = 79965-0) Whether the patient was admitted Unknown to intensive care unit (ICU) for condition of interest (test code = 06670-0) Whether patient resides in a Unknown congregate care setting (test code = 97085-7) status (test code = Unknown 01950-0) Date and time of symptom onset Unknown (test code = 19075-2) [facility] urinalysis [id number] 16:26:23 Test Item Value Reference Range Interpretation Comments Color urine, POC (test Yellow code = 7065878) Clarity urine, POC (test Clear code = 8948197) Glucose urine, POC (test Negative Negative code = 7363907) Bilirubin urine, POC Negative Negative (test code = 8061753) Ketones urine, POC (test Negative Negative code = 4876336) Specific gravity urine, </=1.005 1.005-1.030 POC (test code = 2777472) Blood urine, POC (test Moderate Negative A code = 9026904) pH urine, POC (test code 6.5 See_Comment [A utomated message] = 3521592) The system [employer] generated this result transmitted ref erence range: 5.0, 5.5 , 6.0, 6.5, 7.0, 7.5, 8.0, 8.5. The refere nce range was not u sed to interpret this result as normal/abnor mal. Protein urine, POC (test Negative Negative code = 6637783) Urobilinogen urine, POC <2.0 <=2.0 (test code = 8507052) Nitrite urine, POC (test Negative Negative code = 5095476) Leukocyte esterase Trace Negative A urine, POC (test code = 2073331) Lab Interpretation (test Abnormal code = 36906-7) [facility] BLADDER SCAN/[id number] 16:26:23 Test Item Value Reference Range Interpretation Comments Urine volume (test code = 6354) 0 [facility] [id number] 18:24:00 Test Item Value Reference Range Interpretation Comments POC glucose (test code 109 mg/dL 65-99 H Opera tor Name: = 94807-3) Bob Meeks Device ID: [id number] Lab Interpretation Abnormal (test code = 67237-7) [facility] [id number] 09:10:00 Test Item Value Reference Range Interpretation Comments Urine culture SEE NOTE CULTURE, URIN E, (test code = ROUTINE Micro N umber: 630-4) [id number] Test S tatus: Final Specimen Source: Urine Specimen Qualit y: Adequate Result : Mixed genital f abi isolated. These superficial sami teria are not indicat roxanne of a urinary tract infection. No f urther organism identification is warranted on th is specimen. If clinically amelia cated, recollect clean-catch, mid-stream urin e and transfer immedi ately to Urine Cultur e Transport Tube. RAC (test code Performing = RAC) Organization Information: Site ID: RGA Name: [facility] Address: [address] [place] [id number] Director: Chintan Vu [facility], automated with [id number] 09:10:00 Test Item Value Reference Range Interpretation Comments Color, UA (test code YELLOW YELLOW = 5778-6) Appearance (test CLOUDY CLEAR A code = 5767-9) Specific gravity, 1.026 1.001-1.035 urine (test code = 5811-5) pH, urine (test code 6.0 5.0-8.0 = 5803-2) Glucose, urine (test NEGATIVE NEGATIVE code = 08846-6) Bilirubin, UA (test NEGATIVE NEGATIVE code = 5770-3) Ketones, UA (test TRACE NEGATIVE A code = 2514-8) Occult blood, urine 3+ NEGATIVE A (test code = 5794-3) Protein, UA (test NEGATIVE NEGATIVE code = 72419-3) Nitrite, UA (test NEGATIVE NEGATIVE code = 5802-4) Leukocyte esterase, NEGATIVE NEGATIVE UA (test code = 5799-2) WBC, UA (test code = NONE SEEN See_Comment [Autom ated 5821-4) message] The system which generated this result transmitted reference range : < OR = 5 /HPF. The reference range was not used to interpr et this result as normal/abnormal . RBC, UA (test code = 3-10 See_Comment A [Autom ated 68918-0) message] The system which generated this result transmitted reference range : < OR = 2 /HPF. The reference range was not used to interpr et this result as normal/abnormal . Squamous epithelial 0-5 See_Comment [Automa anni cells, UA (test code message ] The = 54532-2) system which generated this result transmitted reference range : < OR = 5 /HPF. The reference range was not used to interpr et this result as normal/abnormal . Bacteria, UA (test NONE SEEN NONE SEEN /HPF code = 5769-5) Hyaline casts, UA NONE SEEN NONE SEEN /LPF (test code = 5796-8) Note: (test code = This urin e was 8251-1) analyzed for th e presence of WBC , RBC, bacteria, casts, and othe r formed elements . Only those elements seen were reported. RAC (test code = Performing RAC) Organization Information: Site ID: RGA Name: [employer] Lab Address: [address] [place] [id number] Director: Chintan Vu Lab Interpretation Abnormal (test code = 54786-9) [facility] [id number] 17:50:30 Test Item Value Reference Range Interpretation Comments Micturition Max Flow (test code = 17.4 ml/s 8749000) Micturition Avg Flow (test code = 7.6 ml/s 5649822) Micturition Void Vol (test code = 342.9 ml 4237467) Micturition Press Qmax (test code = -1.5 cm H2O 4186762) Micturition Q PressMax (test code = 6 ml/s 5132096) Micturition Peak Pressure (test 0.8 cm H2O code = 6277712) Micturition Mean Pressure (test -28.1 cm H2O code = 2537834) [facility], [id number] 04:38:00 Test Item Value Reference Range Interpretation Comments VIT D 25OH (test code = 46 ng/mL 25-80 05770-1) GA (test code = GA) Deficiency: <20 ng/mLInsufficiency : 20-24 ng/mLOptimal: 25-80 ng/mL Lab Interpretation (test Normal code = 64624-3) [facility] [id number] 01:13:00 Test Item Value Reference Range Interpretation Comments TSH (test code = See_Comment [Automated message] [id number]) The system [employer] generated this result transmitted ref erence range: 0.45 - 4 .70 mIU/L. The refe rence range was not u sed to interpret this result as normal/abnor mal. Lab Interpretation (test Normal code = 67097-4) [facility], [id number] 00:59:00 Test Item Value Reference Range Interpretation Comments T4 TOTAL (test code = See_Comment H [Auto mated [id number]) message] The system which generated this result transmitted reference range : 5.5 - 11.0 mcg/dL. The reference range was not used to interpret this result as normal/abnormal . GA (test code = GA) Normal Range or Expected Values will vary for patients who are on ovulation control drugs or . ? Lab Interpretation Abnormal (test code = 63471-4) [facility] [id number] 00:59:00 Test Item Value Reference Range Interpretation Comments T3 UPTAKE (test code = 33.7 % 23-40 [id number]) GA (test code = GA) Alterations in serum level of thyroxine-binding proteins are reflected in T3 Uptake. ? Lab Interpretation (test Normal code = 45814-3) [facility]
[2023-02-09] MEDS ORDERED: NA CHLORIDE 0.9% 1,000 ML ONE (19:49)
[2023-02-09] MEDS ORDERED: HYDROMORPHONE HCL 1 MG/ML INJ ONE (19:49)
[2023-02-09] MEDS ORDERED: ONDANSETRON 4 MG/2 ML VIAL ONE (19:54)
[2023-02-09 19:59] LABS: Absolute Lymphocytes (CBC) 4.4 K/uL (0.7-4.9); Hematocrit 42.2 % (36.0-45.0); Lymphocytes % 35.9 % (15.3-44.8); MPV 7.4 fL (7.6-11.3); RBC Red Blood Cell Count 4.54 M/uL (3.86-4.86)
--- NOTE | 2023-02-09 20:11 | RAD REPORT ---
EXAM DESCRIPTION: CT - Stone Protocol - 02/09/2023 7:58 pm CLINICAL HISTORY: Abdominal pain. Left flank pain COMPARISON: 2013 TECHNIQUE: Computed axial tomography of the abdomen pelvis was obtained without oral or IV contrast. Lack of IV and oral contrast limits evaluation of solid organs, appendix, bowel, and vessels. Carpio l reformatted images were obtained and reviewed. All CT scans are performed using dose optimization technique as appropriate and may include automated exposure control or mA/KV adjustment according to patient size. FINDINGS: 7 millimeter calculus proximal left ureter with mild to moderate left hydronephrosis. Right renal calculus is not seen. No bladder calculus The liver, spleen, pancreas and adrenals appear grossly normal There is no evidence of diverticulitis. The appendix appears normal Hysterectomy. No adnexal mass Right ventral hernia at the level of the kidneys contains fat. The neck measures 2.5 centimeters. Her niated sac measures 4 centimeters IMPRESSION: 7 millimeter calculus proximal left ureter with mild to moderate left hydronephrosis.
[2023-02-09 20:13] LABS: Bilirubin Total 0.3 mg/dL (0.2-1.0); Potassium 3.6 mEq/L (3.5-5.1); Protein, Total 7.7 g/dL (6.4-8.2)
[2023-02-09] MEDS ORDERED: TAMSULOSIN 0.4 MG SR CAP ONE (20:40)
[2023-02-09] MEDS ORDERED: MAGNESIUM SULFATE 1 gm IVPB 1 GM/100 ML BAG IV ONE (20:41)
[2023-02-09] MEDS ORDERED: HYDROCODONE/APAP 10/325 TAB ONE (21:13)
[2023-02-09] MEDS ORDERED: KETOROLAC 30 MG/ML INJ ONE (21:13)
[2023-02-09 21:14] LABS: Urine Blood 2+ (Negative); Urine Glucose Negative (Negative); Urine Protein Negative (Negative); Urine Specific Gravity >=1.030 (1.005-1.030); Urine pH 5.5 (5.0-7.0)
[2023-02-09 21:33] LABS: Calcium Oxalate Crystals- Ur Few /HPF (None Seen); Urine Bacteria <20 /HPF (<20); Urine Mucus Slight /HPF (None Seen); Urine RBC <5 /HPF (None Seen)
--- NOTE | 2023-02-09 21:51 | EDPHYS ---
Physician Documentation [facility] Name: Melissa Ignacio Age: 47 yrs Sex: Female : 1975 Arrival Date: 02/09/2023 Time: 19:02 Bed 4 Private MD: Zeina Olvera ED Physician [place] Historical: - Allergies: 02/09 19:10 No Known Allergies; ha1 - Home Meds: 19:10 Lisinopril Oral [Active]; ha1 - PMHx: 19:10 Hypertensive disorder; ha1 - Immunization history:: Adult Immunizations up to date. - Social history:: Smoking status: Patient denies any tobacco usage or history of. Vital Signs: 19:05 BP 139 / 114; Pulse 77; Resp 21; Temp 98.3; Pulse Ox 96% ; Weight 120.2 kg; Height 5 ha1 ft. 9 in. ; Pain 10/10; 21:21 BP 116 / 75; Pulse 72; Resp 16; Pulse Ox 96% on R/A; jb4 19:05 Body Mass Index 39.13 (120.20 kg, 175.26 cm) ha1 19:05 Pain Scale: Adult ha1 MDM: 19:12 Patient medically screened. cp 02/09 19:11 Order name: IV Saline Lock; Complete Time: 19:51 cp 02/09 19:11 Order name: Lipase; Complete Time: 20:17 cp 02/09 19:42 Order name: CT Stone Protocol; Complete Time: 20:17 cp 02/09 19:11 Order name: CBC with Diff; Complete Time: 20:17 cp 02/09 20:57 Interpretation: Normal except: WBC 12.30; MPV 7.4. cp 02/09 19:11 Order name: CMP; Complete Time: 20:17 cp 02/09 20:57 Interpretation: Normal except: GLUC 109; CRE 1.04; GFR 67; GLOB 3.7. cp 02/09 19:11 Order name: Labs collected and sent; Complete Time: 21:22 cp 02/09 19:11 Order name: Urine Dipstick-Ancillary (obtain specimen); Complete Time: 21:22 cp 02/09 19:11 Order name: Urine Microscopic Only; Complete Time: 21:46 cp 02/09 21:46 Interpretation: Reviewed. cp 02/09 21:15 Order name: Urine Dipstick-Ancillary; Complete Time: 21:36 EDMS 02/09 21:36 Interpretation: Normal except: UBLD 2+; UESTR Trace. cp 02/09 21:38 Order name: Urine Culture EDMS Administered Medications: 19:36 Not Given (Other Intervention Used): morphine IVP or IV 4 mg IVP once over 4 mins ll1 19:48 Drug: HYDROmorphone IVP 1 mg Route: IVP; Site: left antecubital; kl 19:48 Drug: NS 0.9% IV 1000 ml Route: IV; Rate: 500 ml/hr; Site: left antecubital; kl 19:48 Drug: Ondansetron IVP 4 mg Route: IVP; Site: left antecubital; kl 20:40 Drug: Flomax PO 0.4 mg Route: PO; ll1 20:40 Drug: Magnesium Sulfate IVPB 1 grams Route: IVPB; Infused Over: 30 mins; Site: left ll1 antecubital; 21:14 Follow up: IV Status: Completed infusion; IV Intake: 100ml kl 21:14 Drug: [place] PO 10 mg-325 mg 1 tabs Route: PO; kl 21:14 Drug: Ketorolac IVP 30 mg Route: IVP; Site: left antecubital; kl Disposition Summary: 02/09/23 21:51 Discharge Ordered Location: Home cp Problem: new cp Symptoms: have improved cp Condition: Stable cp Diagnosis - Calculus of ureter - left cp Followup: cp - With: Bertin Cortez MD - When: 2 - 3 days - Reason: Recheck today's complaints Forms: - Medication Reconciliation Form cp - Thank You Letter cp - Antibiotic Education cp - Prescription Opioid Use cp Signatures: Dispatcher [employer] EDMS Felicitas Greene RN RN Deonte Lara PA PA cp Alejandra Greene RN RN ll1 Karon Arias RN RN ha1 Corrections: (The following items were deleted from the chart) 21:22 19:11 Urine Test ordered. cp jb4
--- NOTE | 2023-02-09 21:51 | ER ---
Nurse's Notes [facility] Name: Melissa Ignacio Age: 47 yrs Sex: Female : 1975 Arrival Date: 02/09/2023 Time: 19:02 Bed 4 Private MD: Zeina Olvera Diagnosis: Calculus of ureter-left Presentation: 02/09 19:05 Chief complaint: Patient states: I have a back terrible back pain that started an hour ha1 ago. Coronavirus screen: Vaccine status: Patient reports receiving the 2nd dose of the covid vaccine. Ebola Screen: No symptoms or risks identified at this time. Initial Sepsis Screen: Does the patient meet any 2 criteria? No. Patient's initial sepsis screen is negative. Does the patient have a suspected source of infection? No. Patient's initial sepsis screen is negative. Risk Assessment: Do you want to hurt yourself or someone else? Patient reports no desire to harm self or others. Onset of symptoms was February 09, 2023. 19:05 Method Of Arrival: Ambulatory ha1 19:05 Acuity: NERISSA 3 ha1 Triage Assessment: 19:12 General: Appears uncomfortable, Behavior is crying. Pain: Complains of pain in left low ha1 back Pain does not radiate. Pain currently is 10 out of 10 on a pain scale. Quality of pain is described as throbbing, Pain began suddenly, Is continuous. EENT: No signs and/or symptoms were reported regarding the EENT system. Neuro: Level of Consciousness is awake, alert, obeys commands, Oriented to person, place, time, situation. Cardiovascular: Capillary refill < 3 seconds Patient's skin is warm and dry. Respiratory: Airway is patent Respiratory effort is even, unlabored, Respiratory pattern is regular, symmetrical. GI: Abdomen is non-distended, obese. : No signs and/or symptoms were reported regarding the genitourinary system. Derm: Skin is pink, warm \T\ dry. Musculoskeletal: Circulation, motion, and sensation intact. Range of motion: intact in all extremities. Historical: - Allergies: 19:10 No Known Allergies; ha1 - Home Meds: 19:10 Lisinopril Oral [Active]; ha1 - PMHx: 19:10 Hypertensive disorder; ha1 - Immunization history:: Adult Immunizations up to date. - Social history:: Smoking status: Patient denies any tobacco usage or history of. Screenin:21 Abuse screen: Denies threats or abuse. Denies injuries from another. Nutritional ha1 screening: No deficits noted. Tuberculosis screening: No symptoms or risk factors identified. Assessment: 20:00 Reassessment: Patient appears in no apparent distress at this time. Patient and/or jb4 family updated on plan of care and expected duration. Pain level reassessed. Patient is alert, oriented x 3, equal unlabored respirations, skin warm/dry/pink. 21:21 Reassessment: Patient appears in no apparent distress at this time. Patient and/or jb4 family updated on plan of care and expected duration. Pain level reassessed. Patient is alert, oriented x 3, equal unlabored respirations, skin warm/dry/pink. Patient states feeling better. Patient states symptoms have improved. Vital Signs: 19:05 BP 139 / 114; Pulse 77; Resp 21; Temp 98.3; Pulse Ox 96% ; Weight 120.2 kg; Height 5 ha1 ft. 9 in. ; Pain 10/10; 21:21 BP 116 / 75; Pulse 72; Resp 16; Pulse Ox 96% on R/A; jb4 19:05 Body Mass Index 39.13 (120.20 kg, 175.26 cm) ha1 19:05 Pain Scale: Adult ha1 ED Course: 19:02 Patient arrived in ED. am2 19:03 Zeina Olvera FNP-C is Private Physician. am2 19:03 [facility] cp 19:03 [place] MD is Attending Physician. cp 19:10 Triage completed. ha1 19:12 Patient has correct armband on for positive identification. Placed in gown. Bed in low ha1 position. Call light in reach. Side rails up X 1. 19:38 Inserted saline lock: 20 gauge antecubital area, using aseptic technique. Blood ha1 collected. 20:00 CT Stone Protocol In Process Unspecified. EDMS 21:18 Junaid Matos, PALAK is Primary Nurse. jb4 21:50 Bertin Cortez MD is Referral Physician. cp Administered Medications: 19:36 Not Given (Other Intervention Used): morphine IVP or IV 4 mg IVP once over 4 mins ll1 19:48 Drug: HYDROmorphone IVP 1 mg Route: IVP; Site: left antecubital; kl 19:48 Drug: NS 0.9% IV 1000 ml Route: IV; Rate: 500 ml/hr; Site: left antecubital; kl 19:48 Drug: Ondansetron IVP 4 mg Route: IVP; Site: left antecubital; kl 20:40 Drug: Flomax PO 0.4 mg Route: PO; ll1 20:40 Drug: Magnesium Sulfate IVPB 1 grams Route: IVPB; Infused Over: 30 mins; Site: left ll1 antecubital; 21:14 Follow up: IV Status: Completed infusion; IV Intake: 100ml kl 21:14 Drug: [place] PO 10 mg-325 mg 1 tabs Route: PO; kl 21:14 Drug: Ketorolac IVP 30 mg Route: IVP; Site: left antecubital; kl Intake: 21:14 IV: 100ml; Total: 100ml. kl Outcome: 21:51 Discharge ordered by cp Signatures: Dispatcher [employer] EDFelicitas Sood, RN RN Deonte Lara PA PA Junaid Mcgarry RN RN jb4 April Ag am2 Alejandra Greene RN RN ll1 Karon Arias RN RN ha1
[2023-02-09] MEDS ORDERED: CEFTRIAXONE 1000 MG/VIAL ONE (21:53)
[2023-02-09 23:11] VITALS: TEMP 98.3; O2SAT 96
[2023-02-09 23:12] VITALS: BP 116/75
== END 2023-02-09 22:09 | disposition home or self-care (01) ==
LOC: ER 19:02
DX: N20.1 Calculus of ureter (principal); I10 Essential (primary) hypertension
CPT/HCPCS: 96365; 96361; 87088; 85025; 87086; 36415; 83690; 80053; 76377; 74176; 96375; 99284; J3475; J1170; J2405; J7030; 81003; 81015

== ENCOUNTER 2024-05-05 03:14 | Observation (INO) | payer OTHER ==
[2024-05-05] MEDS ORDERED: ONDANSETRON 4 MG/2 ML VIAL ONE ×2 (03:29→09:27)
[2024-05-05] MEDS ORDERED: KETOROLAC 30 MG/ML INJ ONE ×2 (03:30→09:32)
[2024-05-05] MEDS ORDERED: NA CHLORIDE 0.9% 1,000 ML ONE (03:30)
[2024-05-05] MEDS ORDERED: MORPHINE 4 MG/ML SYR ONE ×2 (03:36→07:27)
[2024-05-05 03:50] LABS: Absolute Basophils 0.1 K/uL (0-0.5); Absolute Eosinophils 0.3 K/uL (0-0.5); Absolute Lymphocytes (CBC) 3.4 K/uL (0.7-4.9); Absolute Monocytes 0.8 K/uL (0.1-1.3); Absolute Neutrophil 6.1 K/uL (1.8-8.0); Basophils % 0.7 % (0-1.3); Eosinophils % 2.5 % (0-4.4); Hematocrit 39.3 % (36.0-45.0); Hemoglobin 13.1 g/dL (12.0-15.0); Lymphocytes % 31.7 % (15.3-44.8); MCH 30.8 pg (27.0-35.0); MCHC 33.2 g/dL (32.0-36.0); MCV 92.6 fL (80-100); MPV 7.7 fL (7.6-11.3); Monocytes % 7.6 % (3.3-12.3); Neutrophils % 57.5 % (41.7-73.7); Platelets 314 thou/uL (152-406); RBC Red Blood Cell Count 4.25 M/uL (3.86-4.86); Red Cell Distribution Width 14.3 % (12.1-15.2)
[2024-05-05 04:01] LABS: Albumin 3.7 g/dL (3.4-5.0); Anion Gap 8.5 mEq/L (5.0-15.0); Bilirubin Total 0.5 mg/dL (0.2-1.0); Globulin 3.6 g/dL (2.3-3.5); Potassium 3.5 mEq/L (3.5-5.1); Protein, Total 7.3 g/dL (6.4-8.2)
[2024-05-05 05:26] LABS: Calcium Oxalate Crystals- Ur Few /HPF (None Seen); Sqamous Epithelial <5 /HPF (None Seen); Urine Bacteria <20 /HPF (<20); Urine Bilirubin NEGATIVE (Negative); Urine Blood 3+ (OVER) (Negative); Urine Clarity Extremely Turbid (Clear); Urine Color Yellow (Yellow); Urine Culture Reflex Order NOT NEEDED; Urine Glucose NEGATIVE (Negative); Urine Ketones NEGATIVE (Negative); Urine Microscopic Reflex YN ORDER UMIC; Urine Mucus 2+ /HPF (None Seen); Urine Nitrite NEGATIVE (Negative); Urine Protein 1+ (Negative); Urine RBC >50 /HPF (None Seen); Urine Urobilinogen Normal (Normal); Urine WBC <5 /HPF (<5); Urine pH 5.5 (5.0-7.0)
[2024-05-05 05:29] LABS: Specific Gravity > 1.030 (1.005-1.030)
[2024-05-05] MEDS ORDERED: METOCLOPRAMIDE 10 MG/2mL INJ ONE (07:26)
[2024-05-05] MEDS ORDERED: TAMSULOSIN 0.4 MG SR CAP ONE (07:26)
--- NOTE | 2024-05-05 07:45 | EDPHYS ---
Physician Documentation [facility] Name: Melissa Ignacio Age: 48 yrs Sex: Female : 1975 Arrival Date: 05/05/2024 Time: 03:14 Bed 7 Private MD: ED Physician Anam Jacques HPI: 05/05 03:18 This 48 yrs old Female presents to ER via Unassigned with complaints of sp4 Possible Kidney Stone. 05:03 48-year-old female presents with moderate to severe left flank pain radiating down the sp4 left groin consistent with her prior pain associated with kidney stone. . [employer]: 03:52 LMP N/A - Hysterectomy, Not vc1 Historical: - Allergies: 03:48 No Known Allergies; vc1 - Home Meds: 03:48 Zoloft Oral [Active]; Metformin Oral [Active]; vc1 - PMHx: 03:48 Hypertensive disorder; Insulin resistant hypothyroidism (Hypertensive disorder); vc1 - PSHx: 03:48 Total abdominal hysterectomy; Cholecystectomy; panniculectomy; vc1 - Immunization history:: Client reports receiving the 2nd dose of the Covid vaccine, Flu vaccine is up to date. - Infectious Disease History:: Denies. - Social history:: Smoking status: Patient denies any tobacco usage or history of. - Family history:: not pertinent. ROS: 05:03 Constitutional: Negative for fever, chills, and weight loss, positive left flank pain sp4 and left groin pain 05:03 All other systems are negative, Exam: 05:03 Constitutional: This is a well developed, well nourished patient who is awake, alert, sp4 and in no acute distress. Uncomfortable appearing Head/Face: Normocephalic, atraumatic. Eyes: Pupils equal round and reactive to light, extra-ocular motions intact. Lids and lashes normal. Conjunctiva and sclera are not injected. Cornea within normal limits. Periorbital areas with no swelling, redness, or edema. ENT: Nares patent. No nasal discharge, no septal abnormalities noted. Tympanic membranes are normal and external auditory canals are clear. Oropharynx with no redness, swelling, or masses, exudates, or evidence of obstruction, uvula midline. Mucous membranes moist. Neck: Trachea midline, no thyromegaly or masses palpated, and no cervical lymphadenopathy. Supple, full range of motion without nuchal rigidity, or vertebral point tenderness. Chest/axilla: Normal chest wall appearance and motion. Nontender with no deformity. No lesions are appreciated. Cardiovascular: Regular rate and rhythm with a normal S1 and S2. No gallops, murmurs, or rubs. Normal PMI, no JVD. No pulse deficits. Respiratory: Lungs have equal breath sounds bilaterally, clear to auscultation and percussion. No rales, rhonchi or wheezes noted. No increased work of breathing, no retractions or nasal flaring. Abdomen/GI: Soft, with normal bowel sounds. No distension or tympany. No guarding or rebound. No evidence of tenderness throughout. Back: No spinal tenderness. No costovertebral tenderness. Skin: Warm, dry with normal turgor. Normal color with no rashes, no lesions, and no evidence of cellulitis. MS/ Extremity: Pulses equal, no cyanosis. Neurovascular intact. Full, normal range of motion. Neuro: Awake and alert, GCS 15, oriented to person, place, time, and situation. Cranial nerves II-XII grossly intact. Motor strength 5/5 in all extremities. Sensory grossly intact. Psych: Awake, alert, with orientation to person, place and time. Behavior, mood, and affect are within normal limits Vital Signs: 03:46 BP 133 / 82; Pulse 62; Resp 40; Pulse Ox 98% ; Weight 120.2 kg; Height 5 ft. 9 in. ; vc1 Pain 8/10; 04:18 BP 122 / 75; Pulse 69; Resp 20; Pulse Ox 95% on R/A; vc1 05:08 Temp 97.4; vc1 05:41 BP 137 / 76; Pulse 69; Resp 20; Pulse Ox 99% ; vc1 06:16 BP 123 / 72; Pulse 63; Pulse Ox 96% on R/A; kd4 07:20 BP 123 / 80; Pulse 70; Resp 19 S; Pulse Ox 100% on R/A; kc6 03:46 Body Mass Index 39.13 (120.20 kg, 175.26 cm) vc1 03:46 Pain Scale: Adult vc1 [place] Coma Score: 05:03 Eye Response: spontaneous(4). Motor Response: obeys commands(6). Verbal Response: sp4 oriented(5). Total: 15. MDM: 04:52 Patient medically screened. sp4 07:08 ED course: EXAM: CTAbdomen and Pelvis With Intravenous Contrast CLINICAL HISTORY: The sp4 patient is 48 years old and is Female; ABD PAIN TECHNIQUE: Axial computed tomography images of the abdomen and pelvis with intravenous contrast. Sagittal and coronal reformatted images were created and reviewed. This CT exam was performed using one or more of the following dose reduction techniques: automated exposure control, adjustment of the mA and/or kV according to patient size, and/or use of iterative reconstruction technique. COMPARISON: February 09, 2023. FINDINGS: Lung bases: Linear atelectasis in the lingula left lower lobe. ABDOMEN: Liver: Mild fatty liver. Gallbladder and bile ducts: Cholecystectomy without biliary dilatation. Pancreas: No findings to suggest acute pancreatitis. No mass visualized. No ductal dilation. Spleen: Unremarkable. No splenomegaly. Adrenals: Unremarkable. No mass. Kidneys and ureters: Mild left hydronephrosis and 8.4 x 4.0 mm calculus in the mid/distal ureter. Left kidney is unremarkable. Stomach and bowel: Colonic diverticulosis. No bowel dilatation or obstruction. No bowel wall thickening. PELVIS: Appendix: The visualized appendix is normal. No pericecal inflammation to suggest acute appendicitis. Bladder: Unremarkable. No mass. Reproductive: Hysterectomy. No adnexal mass. ABDOMEN and PELVIS: Intraperitoneal space: Unremarkable. No free air. No significant fluid collection. Bones/joints: No acute fracture visualized. No dislocation. Soft tissues: Unremarkable. Vasculature: Unremarkable. No abdominal aortic aneurysm. Lymph nodes: No pathologically enlarged lymph nodes. IMPRESSION: 1. Mild left hydronephrosis and 8.4 x 4.0 mm calculus in the mid/distal ureter. 2. Colonic diverticulosis. 3. Additional non-emergent findings as above. . 07:23 ED course: We have considered admission for pain control . sp4 07:25 ED course: COMPARISON: February 09, 2023. FINDINGS: Lung bases: Linear atelectasis in the sp4 lingula left lower lobe. ABDOMEN: Liver: Mild fatty liver. Gallbladder and bile ducts: Cholecystectomy without biliary dilatation. Pancreas: No findings to suggest acute pancreatitis. No mass visualized. No ductal dilation. Spleen: Unremarkable. No splenomegaly. Adrenals: Unremarkable. No mass. Kidneys and ureters: Mild left hydronephrosis and 8.4 x 4.0 mm calculus in the mid/distal ureter. Left kidney is unremarkable. Stomach and bowel: Colonic diverticulosis. No bowel dilatation or obstruction. No bowel wall thickening. PELVIS: Appendix: The visualized appendix is normal. No pericecal inflammation to suggest acute appendicitis. Bladder: Unremarkable. No mass. Reproductive: Hysterectomy. No adnexal mass. ABDOMEN and PELVIS: Intraperitoneal space: Unremarkable. No free air. No significant fluid collection. Bones/joints: No acute fracture visualized. No dislocation. Soft tissues: Unremarkable. Vasculature: Unremarkable. No abdominal aortic aneurysm. Lymph nodes: No pathologically enlarged lymph nodes. IMPRESSION: 1. Mild left hydronephrosis and 8.4 x 4.0 mm calculus in the mid/distal ureter. 2. Colonic diverticulosis. 3. Additional non-emergent findings as above. . 07:26 Differential Diagnosis altered mental status, sepsis, flu, abdominal pain . Data sp4 reviewed: vital signs, nurses notes, lab test result(s), radiologic studies, CT scan. Transition of care: After a detail discussion of the patient's case, care is transferred to Anam Jacques MD. 07:43 ED course: Patient signed out to me by warehouse receiver physician Dr. Estrella. Patient is a sp3 48-year-old female with left flank pain and 8.4 mm kidney stone requiring admission for pain control and hydration. I spoke to Dr. Cortez who will be seeing her in consultation and patient will be admitted to the hospitalist service.. 05/05 03:27 Order name: CBC with Diff; Complete Time: 04:55 4 05/05 03:27 Order name: CMP; Complete Time: 04:55 4 05/05 03:27 Order name: Lipase; Complete Time: 04:55 4 05/05 03:27 Order name: Urinalysis w/ reflexes; Complete Time: 07:07 4 05/05 03:27 Order name: CT Abd/Pelvis - IV Contrast Only 4 05/05 03:27 Order name: IV Saline Lock; Complete Time: 03:46 4 05/05 03:27 Order name: Labs collected and sent; Complete Time: 03:46 sp4 Administered Medications: 03:35 CANCELLED (Duplicate Order): morphineor iv 4 mg IVP once over 4 mins vc1 03:46 Drug: NS 0.9% IV 1000 ml IV at 1 bolus Per protocol; 1000 mL bolus Route: IV; Rate: 1 vc1 bolus; Site: left antecubital; 03:46 Drug: TORadol - Ketorolac IVP 30 mg IVP once Route: IVP; Site: left antecubital; vc1 03:46 Drug: Ondansetron IVP 4 mg IVP once; over 2 minutes Route: IVP; Site: left antecubital; vc1 03:46 Drug: morphine IVP or IV 4 mg IVP once over 4 mins Route: IVP; Infused Over: 4 mins; vc1 Site: left antecubital; 07:42 Drug: morphine IVP or IV 4 mg IVP once over 4 mins Route: IVP; Infused Over: 4 mins; kc6 Site: left antecubital; 07:42 Drug: Flomax PO 0.4 mg PO once Route: PO; kc6 07:42 Drug: metoCLOPramide IVP 10 mg IVP once; over 1 to 2 minutes Route: IVP; Site: left kc6 antecubital; Disposition Summary: 05/05/24 07:44 Hospitalization Ordered Notes: Hospitalization Status: Observation sp3 Provider: Romaine Lan sp3 Location: Telemetry/[facility]Sur (observation) sp3 Condition: Stable sp3 Problem: an acute exacerbation sp3 Symptoms: have worsened sp3 Bed/Room Type: Standard sp3 Room Assignment: sp3 Diagnosis - Ureterolithiasis, left hydronephrosis, flank pain sp3 Forms: - Medication Reconciliation Form sp3 - SBAR form sp3 - Leadership Thank You Letter sp3 Signatures: Dispatcher [employer] EDAnam Espinosa MD MD sp3 Kimberly Lr RN RN vc1 Therese Corado RN RN kc6 Wiley Youssef MD MD sp4 Corrections: (The following items were deleted from the chart) 03:35 03:35 morphine IVP or IV 4 mg IVP once over 4 mins ordered. vc1 vc1
--- NOTE | 2024-05-05 07:45 | ER ---
Nurse's Notes [facility] Name: Melissa Ignacio Age: 48 yrs Sex: Female : 1975 Arrival Date: 05/05/2024 Time: 03:14 Bed 7 Private MD: Diagnosis: Ureterolithiasis, left hydronephrosis, flank pain Presentation: 05/05 03:46 Chief complaint: Patient states: left lower back pain radiates to left flank and left vc1 abdomen. Coronavirus screen: Vaccine status: Patient reports receiving the 2nd dose of the covid vaccine. Client denies travel out of the [place] in the last 14 days. At this time, the client does not indicate any symptoms associated with coronavirus-19. Ebola Screen: Patient negative for fever greater than or equal to 101.5 degrees Fahrenheit, and additional compatible Ebola Virus Disease symptoms Patient denies exposure to infectious person. Patient denies travel to an Ebola-affected area in the 21 days before illness onset. No symptoms or risks identified at this time. Initial Sepsis Screen: Does the patient meet any 2 criteria? No. Patient's initial sepsis screen is negative. Does the patient have a suspected source of infection? No. Patient's initial sepsis screen is negative. Risk Assessment: Do you want to hurt yourself or someone else? Patient reports no desire to harm self or others. Onset of symptoms was May 05, 2024. 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 - Infectious Disease History:: Denies. - Social history:: Smoking status: Patient denies any tobacco usage or history of. - Family history:: not pertinent. Screenin:[address] [facility] ED Fall Risk Assessment (Adult) History of falling in the last 3 months, vc1 including since admission No falls in past 3 months (0 pts) Confusion or Disorientation No (0 pts) Intoxicated or Sedated No (0 pts) Impaired Gait No (0 pts) Mobility Assist Device Used No (0 pt) Altered Elimination No (0 pt) Score/Fall Risk Level 0 - 2 = Low Risk Oriented to surroundings, Maintained a safe environment, Educated pt \T\ family on fall prevention, incl call for assistance when getting out of bed. Abuse screen: Denies threats or abuse. Nutritional screening: No deficits noted. Tuberculosis screening: No symptoms or risk factors identified. Assessment: 04:18 Reassessment: Patient and/or family updated on plan of care and expected duration. Pain vc1 level reassessed. Patient is alert, oriented x 3, equal unlabored respirations, skin warm/dry/pink. Patient states feeling better. Patient states symptoms have improved. 05:41 Reassessment: Patient appears in no apparent distress at this time. No changes from vc1 previously documented assessment. Patient and/or family updated on plan of care and expected duration. Pain level reassessed. Patient is alert, oriented x 3, equal unlabored respirations, skin warm/dry/pink. Pain: Denies pain. GI: Abdomen is round non-distended, Bowel sounds present X 4 quads. Abd is soft and non tender X 4 quads. 07:00 Reassessment: Patient appears in no apparent distress at this time. No changes from kc6 previously documented assessment. Patient and/or family updated on plan of care and expected duration. Pain level reassessed. Patient is alert, oriented x 3, equal unlabored respirations, skin warm/dry/pink. Vital Signs: 03:46 BP 133 / 82; Pulse 62; Resp 40; Pulse Ox 98% ; Weight 120.2 kg; Height 5 ft. 9 in. ; vc1 Pain 8/10; 04:18 BP 122 / 75; Pulse 69; Resp 20; Pulse Ox 95% on R/A; vc1 05:08 Temp 97.4; vc1 05:41 BP 137 / 76; Pulse 69; Resp 20; Pulse Ox 99% ; vc1 06:16 BP 123 / 72; Pulse 63; Pulse Ox 96% on R/A; kd4 07:20 BP 123 / 80; Pulse 70; Resp 19 S; Pulse Ox 100% on R/A; kc6 03:46 Body Mass Index 39.13 (120.20 kg, 175.26 cm) vc1 03:46 Pain Scale: Adult vc1 Caro Coma Score: 05:03 Eye Response: spontaneous(4). Motor Response: obeys commands(6). Verbal Response: sp4 oriented(5). Total: 15. ED Course: 03:15 Patient arrived in ED. jj6 03:18 Wiley Youssef MD is Attending Physician. sp4 03:28 Sri Schmitt RN is Primary Nurse. lg3 03:48 Triage completed. vc1 03:52 Arm band placed on left wrist. vc1 03:52 Patient has correct armband on for positive identification. Bed in low position. Call vc1 light in reach. Pulse ox on. NIBP on. 03:53 Inserted saline lock: 20 gauge in left antecubital area, using aseptic technique. Blood vc1 collected. 04:22 CT Abd/Pelvis - IV Contrast Only In Process Unspecified. EDMS 07:00 Report received from PALAK Harris. kc6 07:31 Attending Physician role handed off by Wiley Youssef MD sp3 07:31 Anam Jacques MD is Attending Physician. sp3 07:44 Romaine Lan is Hospitalizing Provider. sp3 08:43 No provider procedures requiring assistance completed. Patient admitted, IV remains in kc6 place. Administered Medications: 03:35 CANCELLED (Duplicate Order): morphineor iv 4 mg IVP once over 4 mins vc1 03:46 Drug: NS 0.9% IV 1000 ml IV at 1 bolus Per protocol; 1000 mL bolus Route: IV; Rate: 1 vc1 bolus; Site: left antecubital; 03:46 Drug: TORadol - Ketorolac IVP 30 mg IVP once Route: IVP; Site: left antecubital; vc1 03:46 Drug: Ondansetron IVP 4 mg IVP once; over 2 minutes Route: IVP; Site: left antecubital; vc1 03:46 Drug: morphine IVP or IV 4 mg IVP once over 4 mins Route: IVP; Infused Over: 4 mins; vc1 Site: left antecubital; 07:42 Drug: morphine IVP or IV 4 mg IVP once over 4 mins Route: IVP; Infused Over: 4 mins; kc6 Site: left antecubital; 07:42 Drug: Flomax PO 0.4 mg PO once Route: PO; kc6 07:42 Drug: metoCLOPramide IVP 10 mg IVP once; over 1 to 2 minutes Route: IVP; Site: left kc6 antecubital; Medication: 03:53 VIS not applicable for this client. vc1 Outcome: 07:44 Decision to Hospitalize by Provider. sp3 08:43 Admitted to OR accompanied by nurse, via wheelchair, with chart, kc6 08:43 Condition: good 08:43 Instructed on the need for admit, 08:44 Patient left the ED. kc6 Signatures: Dispatcher [employer] EDMS Sri Schmitt RN RN lg3 Anam Jacques MD MD sp3 Zeina [email or web address] Kimberly Lr RN RN vc1 Therese Corado RN RN kc6 Wiley Youssef MD MD sp4 Carolina Toro RN RN kd4
[2024-05-05] MEDS: NA CHLORIDE 0.9% 1,000 ML ONE (08:51)
[2024-05-05] MEDS ORDERED: MIDAZOLAM HCL 2 MG/2 ML INJ ONE (09:03)
[2024-05-05 09:11] VITALS: BP 123/80; TEMP 97.4
--- NOTE | 2024-05-05 09:18 | P.CNS ---
Date of Consult: 05/05/24 Reason for Consult: Ureterolithiasis Chief Complaint: Left lower quadrant pain History of Present Illness: 48-year-old woman with hypertension, hypothyroidism, DM 2, anxiety disorder s/p hysterectomy presents with left lower quadrant pain that radiates into her left flank and groin that began yesterday at 10 PM. This has been associated with nausea but no fever or chills and no vomiting. She came to the emergency department where imaging was obtained revealing the presence of a ureteral calculus. Her first episode of ureterolithiasis was in September 2022 and involved her right side. She denies any dysuria or gross hematuria. Past medical history: As above Past surgical history: Total abdominal hysterectomy, cholecystectomy, panniculectomy Social history: No history of smoking or recreational drug use Family history: No urologic malignancy but mother with CKD stage III No known drug allergies Examination: Well-appearing, well-developed, well-nourished, no acute distress Alert, awake, oriented x 3 No dyspnea or sign of respiratory distress No cervical/supraclavicular adenopathy or thyromegaly Abdomen soft, nontender Lying in ER stretcher comfortable at this point Laboratory analyses 05/05/2024: WBC 10.6, hemoglobin 13.1, platelets 314, creatinine 1.0, potassium 3.5, ALT mildly elevated at 62, UA micro 3+ heme but negative nitrite/leukocyte esterase and no WBCs per hpf 05/05/2024 CT abdomen pelvis stone protocol my review of the imaging -mild left hydronephrosis with mid distal approximately 8 mm ureteral calculus without associated nephrolithiasis Assessment and recommendation: 48-year-old woman with hypertension, hypothyroidism, DM 2, anxiety disorder s/p hysterectomy and panniculectomy recurrent stone former with left lower quadrant radiating into the left flank pain due to obstructive 8 mm ureterolithiasis. -I counseled the patient that she had about a 20% chance of successful spontaneous passage of the stone, and as such, intervention was recommended to decrease the risk of acute kidney injury or progression of stricture disease. I explained the potential for stent discomfort as well as the risk of inability to place the stent and need for nephrostomy tube to be placed. -Cystoscopy with left retrograde pyelography followed by left ureteral stent placement was discussed in detail Risk of the procedure were discussed to include urethral stricture, ureteral stricture, ureteral injury, infection. Side effects of stent discomfort, gross hematuria were discussed in detail -Follow-up to be established to discuss definitive management of the stone the ureteroscopy with laser lithotripsy and stent exchange -As a recurrent stone former, she would benefit from definitive metabolic profile assessment down the line. Allergies No Known Allergies Allergy (Unverified 05/05/24 08:31) Home medications list reviewed: Yes - Past Medical/Surgical History Diabetic: Yes Physical Examination Temp Pulse Resp BP Pulse Ox 97.4 F 70 19 123/80 05/05/24 08:51 05/05/24 08:55 05/05/24 08:55 05/05/24 08:55 Laboratory Data (last 24 hrs) 05/05/24 05/05/24 03:36 03:36 WBC 10.60 Hgb 13.1 Hct 39.3 Plt Count 314 Sodium 138 Potassium 3.5 BUN 16 Creatinine 1.00 Glucose 105 Total Bilirubin 0.5 AST 27 ALT 62 H Alkaline Phosphatase 70 Lipase 40 - Problems (1) Acute left flank pain Current Visit: Yes Status: Acute (2) Recurrent nephrolithiasis Current Visit: Yes Status: Acute (3) Ureterolithiasis Current Visit: Yes Status: Acute Conclusions/Impression: see A&P in HPI Critical Care: No Time Spent Managing Pts care (In Minutes): 45
[2024-05-05] MEDS: CEFTRIAXONE 1000 MG/VIAL ONE (09:21)
[2024-05-05] MEDS ORDERED: propofoL 200 MG/20 ML VIAL IV ONE (09:27)
[2024-05-05] MEDS ORDERED: FENTANYL CITR 100 MCG/2 ML ONE (09:27)
[2024-05-05] MEDS ORDERED: LIDOCAINE 1% MPF 5 ML VIAL ONE (09:28)
[2024-05-05] MEDS ORDERED: dexAMETHasone 10 MG/ML VIAL ONE (09:32)
--- NOTE | 2024-05-05 09:38 | P.HP ---
Certification for Inpatient Patient admitted to: Inpatient With expected LOS: <2 Midnights Patient will require the following post-hospital care: None Practitioner: I am a practitioner with admitting privileges, knowledge of patient current condition, hospital course, and medical plan of care. Services: Services provided to patient in accordance with Admission requirements found in Title 42 Section 412.3 of the Code of Federal Regulations Patient History Date of Service: 05/05/24 Reason for admission: Left lower quadrant pain History of Present Illness: Melissa Ignacio is a 48-year-old female with past medical history of hypertension, hypothyroidism, kidney stones, diabetes mellitusNIDDM, anxiety disorder who presents to the ED with chief complaint of left flank pain radiating down to left groin. With a history of kidney stone she reports feeling like this was also a kidney stone issue. CT abdomen pelvis reports mild left hydronephrosis and a 0.4 x 4.0 mm calculus in the mid/distal ureter. Dr. Cortez was consulted and has taken her to surgery for stent placement. Allergies No Known Allergies Allergy (Unverified 05/05/24 08:31) - Past Medical/Surgical History Diabetic: Yes -: Hypertension -: Hypothyroidism -: Kidney stones -: Anxiety disorder -: Diabetes mellitusNIDDM -: Total abdominal hysterectomy -: Cholecystectomy -: Panniculectomy Physical Examination - Vital Signs Temperature: 97.4 F Blood Pressure: 123/80 Pulse: 70 Respirations: 19 - Studies Laboratory Data (last 24 hrs) 05/05/24 05/05/24 03:36 03:36 WBC 10.60 Hgb 13.1 Hct 39.3 Plt Count 314 Sodium 138 Potassium 3.5 BUN 16 Creatinine 1.00 Glucose 105 Total Bilirubin 0.5 AST 27 ALT 62 H Alkaline Phosphatase 70 Lipase 40 Assessment and Plan - Plan Assessment and plan Left ureterolithiasis with Left hydronephrosis History of kidney stone -Consulted Dr. Cortez, surgery today -N.p.o. -Pain control -IV antibiotics Diabetes mellitusNIDDM -Accu-Chek with sliding scale insulin History of hypertension History of anxiety disorder History of hypothyroidism -Continue home medications DVT PPx SCD Full code 2 days Discharge Plan: Home Plan to discharge in: 24 Hours - Advance Directives Does patient have a Living Will: No Does patient have a Durable POA for Healthcare: No
--- NOTE | 2024-05-05 09:59 | P.OP ---
Date of Service: 05/05/24 Preoperative diagnoses: Left lower quadrant pain Left flank pain Obstructive ureterolithiasis -8 mm mid distal ureter Recurrent stone former Postoperative diagnoses: Same Principal procedures: Cystoscopy Left retrograde pyelography Left ureteral stent placement Indication for procedure: 48-year-old woman with hypertension, hypothyroidism, DM 2, anxiety disorder s/p hysterectomy and panniculectomy recurrent stone former with left lower quadrant radiating into the left flank pain due to obstructive 8 mm ureterolithiasis. -I counseled the patient that she had about a 20% chance of successful spontaneous passage of the stone, and as such, intervention was recommended to decrease the risk of acute kidney injury or progression of stricture disease. I explained the potential for stent discomfort as well as the risk of inability to place the stent and need for nephrostomy tube to be placed. -Cystoscopy with left retrograde pyelography followed by left ureteral stent placement was discussed in detail Risk of the procedure were discussed to include urethral stricture, ureteral stricture, ureteral injury, infection. Side effects of stent discomfort, gross hematuria were discussed in detail -Follow-up to be established to discuss definitive management of the stone the ureteroscopy with laser lithotripsy and stent exchange -As a recurrent stone former, she would benefit from definitive metabolic profile assessment down the line. Procedure note: The patient was consented in the preoperative holding area before being tra nsferred to the operative suite where general anesthesia was induced. She was given ceftriaxone 1 g IV antimicrobial prophylaxis, and pneumoboots were provided for DVT prophylaxis. She was placed in the lithotomy position, padded and secured to the table appropriately. Her genitalia was prepped with Hibiclens and she was draped in standard fashion. The case was begun using a 22 Martiniquais rigid cystoscope to traverse the urethra and into the bladder with ease. The bladder was decompressed of fluid and urine and surveyed. No papillary mucosal lesions, foreign bodies or stones were noted throughout. The ureteral orifices were orthotopic in location, and the left ureteral orifice was cannulated with a 5 Martiniquais ureteral access catheter with relative ease. Left retrograde pyelography: Using a 70: 30 mixture of Omnipaque and saline, contrast was injected via the lumen of the 5 Martiniquais ureteral access catheter and did propagate up the distal into the mid and proximal ureter before entering the renal pelvis. Of note, prior IV administered contrast was visible in the collecting system on the left at this point. The stone was not distinctly visible. As a result, I passed a sensor wire via the 5 Martiniquais ureteral access catheter coiling it within the upper pole calyx of the left kidney and then I passed a 6 Martiniquais by 26 cm double-J ureteral stent over the wire into the collecting system with a coil observed fluoroscopically in the renal pelvis and 1 cystoscopically formed in her bladder. I then decompressed her bladder of fluid and urine and took the patient out of the lithotomy position after removing the scope. She was then awakened from general anesthesia, transferred to a stretcher before being transferred to the recovery room in good condition. Complications: None Discharge disposition: She should follow-up with me as an outpatient for scheduling and planning for definitive management of her left obstructive ureterolithiasis. She may be scheduled in the interim for left ureteroscopy with laser lithotripsy and stent exchange, with preoperative outpatient visit with me a week prior to that surgery. Further, since she is now a recurrent stone former, definitive metabolic evaluation will eventually be required.
[2024-05-05] MEDS ORDERED: NA CHLORIDE 0.9% 1,000 ML IV SCH (10:00)
[2024-05-05] MEDS ORDERED: HYDROCODONE/APAP 5/325 MG TAB PO PRN (10:01)
--- NOTE | 2024-05-05 10:15 | P.SSS ---
Patient History Date of Service: 05/05/24 Reason for admission: Left lower quadrant pain History of Present Illness: Melissa Ignacio is a 48-year-old female with past medical history of hypertension, hypothyroidism, kidney stones, diabetes mellitusNIDDM, anxiety disorder who presents to the ED with chief complaint of left flank pain radiating down to the left groin. With a history of kidney stone she reports feeling like this was also a kidney stone issue. CT abdomen pelvis reports mild left hydronephrosis and a 8.4 x 4.0 mm calculus in the mid/distal ureter. Dr. Cortez was consulted and has taken her for surgical intervention. She has tolerated the procedure well and is hemodynamically stable for discharge. Dr. Cortez has cleared her for discharge. Allergies No Known Allergies Allergy (Unverified 05/05/24 08:31) Home Medications: Hydrocodone 5/APAP 325 [[place] 5/325] 1 tab PO Q6H PRN #15 tab 05/05/24 - Past Medical/Surgical History Diabetic: Yes -: Hypertension -: Hypothyroidism -: Kidney stones -: Anxiety disorder -: Diabetes mellitusNIDDM -: Total abdominal hysterectomy -: Cholecystectomy -: Panniculectomy Review of Systems General: Other (uncomfortable) Gastrointestinal: Other (left flank and groin pain) Physical Examination - Vital Signs Temperature: 97.4 F Blood Pressure: 123/80 Pulse: 70 Respirations: 19 - Physical Exam General: Alert, In no apparent distress, Oriented x3, Other (uncomfortable) HEENT: Atraumatic, Normocephalic, PERRLA Neck: Supple, 2+ carotid pulse no bruit Respiratory: Clear to auscultation bilaterally, Normal air movement Cardiovascular: Normal pulses, Regular rate/rhythm, Normal S1 S2 Capillary refill: <2 Seconds Gastrointestinal: Normal bowel sounds, Soft and benign Musculoskeletal: No swelling Integumentary: No rashes Neurological: Normal speech, Normal tone - Studies Laboratory Data (last 24 hrs) 05/05/24 05/05/24 03:36 03:36 WBC 10.60 Hgb 13.1 Hct 39.3 Plt Count 314 Sodium 138 Potassium 3.5 BUN 16 Creatinine 1.00 Glucose 105 Total Bilirubin 0.5 AST 27 ALT 62 H Alkaline Phosphatase 70 Lipase 40 Treatment Summary: Surgery with Dr. Cortez and was cleared for discharge with follow up with Dr. Cortez in clinic. - Disposition Disposition: ROUTINE DISCHARGE Condition: GOOD Diet: Low sodium Activity: Ad macho
--- NOTE | 2024-05-05 10:52 | RAD REPORT ---
EXAM DESCRIPTION: RAD - Urethrocystogrphy Retrograde - 05/05/2024 10:07 am CLINICAL HISTORY: ICD N 20.0 FINDINGS: A 5 fluoroscopic spot images obtained. Fluoroscopy time 0.08 minutes Left ureter was cannulated and contrast administered. Subsequently an ureteral stent was placed. Exam ination was performed by Dr Cortez
[2024-05-05] MEDS ORDERED: PHENAZOPYRIDINE 100MG TAB PO ONE (11:19)
[2024-05-05] MEDS: HYDROCODONE/APAP 5/325 MG TAB ONE (11:26)
[2024-05-05] MEDS: PHENAZOPYRIDINE 100MG TAB PO ONE (11:27)
--- NOTE | 2024-05-05 12:31 | RAD REPORT ---
EXAM DESCRIPTION: CT - Abdomen Pelvis W Contrast - 05/05/2024 7:30 am CLINICAL HISTORY: The patient is 48 years old and is Female; ABD PAIN TECHNIQUE: Axial computed tomography images of the abdomen and pelvis with intravenous contrast. S agittal and coronal reformatted images were created and reviewed. This CT exam was performed using one or more of the following dose reduction techniques: automated exposure control, adjustment of t he mA and/or kV according to patient size, and/or use of iterative reconstruction technique. COMPARISON: February 09, 2023. FINDINGS: Lung bases: Linear atelectasis in the lingula left lower lobe. ABDOMEN: Liver: Mild fatty liver. Gallbladder and bile ducts: Cholecystectomy without biliary dilatation. Pancreas: No findings to suggest acute pancreatitis. No mass visualized. No ductal dilation. Spleen: Unremarkable. No splenomegaly. Adrenals: Unremarkable. No mass. Kidneys and ureters: Mild left hydronephrosis and 8.4 x 4.0 mm calculus in the mid/distal ureter. Left kidney is unremarkable. Stomach and bowel: Colonic diverticulosis. No bowel dilatation or obstruction. No bowel wall thickening. PELVIS: Appendix: The visualized appendix is normal. No pericecal inflammation to suggest acute appendici tis. Bladder: Unremarkable. No mass. Reproductive: Hysterectomy. No adnexal mass. ABDOMEN and PELVIS: Intraperitoneal space: Unremarkable. No free air. No significant fluid collection. Bones/joints: No acute fracture visualized. No dislocation. Soft tissues: Unremarkable. Vasculature: Unremarkable. No abdominal aortic aneurysm. Lymph nodes: No pathologically enlarged lymph nodes. IMPRESSION: 1. Mild left hydronephrosis and 8.4 x 4.0 mm calculus in the mid/distal ureter. 2. Colonic diverticulosis. 3. Additional non-emergent findings as above. Electronically signed by: María Galicia MD 05/05/2024 06:47 AM CDT ND Due to temporary technical issues with the PACS/Fluency reporting system, reports are being signed by the in house radiologist without review as a courtesy to ensure prompt reporting. The interpreting r adiologist is fully responsible for the content of the report.
[2024-05-05 14:44] VITALS: O2SAT 94
[2024-05-06] MEDS ORDERED: CEFTRIAXONE 1,000 MG in NA CHLORIDE 0.9% 50 ML IVPB SCH (09:00)
== END 2024-05-05 11:35 | disposition home or self-care (01) ==
LOC: ER 03:14 → ERHOLD 09:35 → INTOOBSV 09:35 → ERHOLD 09:58 → 2ND 09:58
PROVIDERS: ADMIT Internal Medicine; ATTEND Internal Medicine
PROC: BT1FZZZ Fluoroscopy of Left Kidney, Ureter and Bladder (ICD-10-PCS; principal; 2024-05-05 08:15)
DX: N20.1 Calculus of ureter (principal); Z87.442 Personal history of urinary calculi; I10 Essential (primary) hypertension; E03.9 Hypothyroidism, unspecified; E11.9 Type 2 diabetes mellitus without complications; F41.9 Anxiety disorder, unspecified
CPT/HCPCS: 52332; 85025; 81001; 36415; 83690; 80053; 74177; 74450; 51610; 96375; 96374; 99285; Q9967; J2704; J2765; J2001; J2250; J3010; J1100; J2405 ×2; G0378; J7030 ×2; J0696